=== PATIENT | male | born 1990 | race Caucasian/White ===

== ENCOUNTER 2024-08-09 23:14 | Emergency (ER) | payer OTHER, SELFPAY ==
[2024-08-09 23:27] VITALS: BP 114/65; BP 117/65; PULSE 85; RESP 16; TEMP 36.7; O2SAT 96; BMI 23.3
[2024-08-09 23:29] VITALS: BP 117/65; PULSE 84; RESP 16; TEMP 36.7; O2SAT 97
--- NOTE | 2024-08-09 23:42 | ED_ITS ---
HPI - General Adult General Chief complaint: General Medical Stated complaint: med eval - detoxing from heroin and crack Time Seen by Provider: 08/09/24 23:39 Source: patient and old records reviewed Mode of arrival: ambulatory Limitations: no limitations History of Present Illness ED Provider: MARKUS ESPINOSA narrative: 33 yo male with substance abuse, adhd here with c/o of not being able to get his medications since getting to [facility] 08/07 due to lack of meds at [place] [facility]. He states he is otherwise fine. They did not send it to 24 hours pharmacy. He is asking for medications MD complaint: needs his night meds Onset (ago): day(s) (2) Radiation: non-radiation Severity: moderate Relieving factors: none Exacerbating factors: none Associated symptoms: denies other symptoms Treatments prior to arrival: none Related Data Previous Rx's ?Medication ?Instructions ?Recorded gabapentin 300 mg capsule 300 mg PO TID #9 caps 08/09/24 haloperidol 5 mg tablet 5 mg PO BEDTIME #3 tabs 08/09/24 sertraline 100 mg tablet 100 mg PO DAILY #3 tabs 08/09/24 trazodone 50 mg tablet 50 mg PO BEDTIME #3 tabs 08/09/24 buprenorphine 8 mg-naloxone 2 mg 1 film buccal BID #6 ea 08/10/24 sublingual film (Suboxone) dextroamphetamine-amphetamine ER 15 mg PO DAILY #3 caps 08/10/24 15 mg 24hr capsule,extend release (Adderall XR) Allergies Allergy/AdvReac Type Severity Reaction Status Date / Time No Known Allergies Allergy Verified 08/09/24 23:29 Review of Systems Review of Systems: Constitutional : No Fever, No Chills, No Fatigue ENT/Mouth : No sore throat, No Rhinorrhea Eyes: No Eye Pain, No Swelling, No Redness Cardiovascular : No Chest Pain, No SOB, No Dyspnea on Exertion Respiratory : No Cough, No Sputum Gastrointestinal : No Nausea, No Vomiting, No Diarrhea, No abdominal Pain Genitourinary : No Dysuria, No Urinary Frequency, No Hematuria, Musculoskeletal : No joint pain, No Myalgias, No Joint Swelling Skin : No Skin Lesions, No rash Neuro : No Weakness, No Numbness, No Dizziness, no Headache All other systems reviewed and are negative PMFSH Past Medical History Attestation statement: The following information was validated with the patient. Source: old records reviewed Medical History (Updated 08/10/24 @ 00:01 by Tanvir Coyle) Mood disorder ADHD Opiate use Social History Social History (Updated 08/09/24 @ 23:43 by Lisa Massey DO) Patient Tobacco Use Status: Tobacco use Unknown Advance Directives: No Advance Directives Information Provided: Yes Physical Exam ED Vital Signs: Vital Signs - 24 hr 08/09/24 23:27 08/09/24 23:29 Temperature 98.1 F 98.1 F Pulse Rate 84 Respiratory Rate 16 16 Blood Pressure 117/65 117/65 Pulse Oximetry 97 Oxygen Delivery Method Room Air BMI result Body Mass Index 23.3 Appearance: Alert. Oriented X3. No acute distress. Eyes: Pupils equal, round and reactive to light. ENT: Pharynx normal. Neck: Normal inspection. Neck supple. CVS: Normal heart rate and rhythm. Pulses normal. Respiratory: No respiratory distress. Breath sounds normal. Abdomen: Soft and nontender. Skin: Skin warm and dry. Normal skin color. Normal skin turgor. Extremities: No lower extremity edema. No calf ttp Neuro: Oriented X 3. No motor deficit. No sensory deficit. 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 Suboxone Quetiapine - taking both and PRN hydroxyzine - taking Gabapentin - Adderall XR Sertraline Trazodone quetiapine haldol toro does not dose Rx until Monday will write 24 hours [facility] [address] for him through Monday Medications Administered Discontinued Medications Generic Name Dose Route Start Last Admin Trade Name Dai PRN Reason Stop Dose Admin Buprenorphine/Naloxone 1 film 08/09/24 23:45 08/09/24 23:55 Buprenorphine/Naloxone 8/2 Mg Film SUBLINGUAL 08/09/24 23:46 1 film ONCE ONE Administration Gabapentin 300 mg 08/09/24 23:45 08/09/24 23:52 Gabapentin 300 Mg Capsule PO 08/09/24 23:46 300 mg ONCE ONE Administration Haloperidol 5 mg 08/09/24 23:45 08/09/24 23:54 Haloperidol 5 Mg Tablet PO 08/09/24 23:46 5 mg ONCE ONE Administration Quetiapine Fumarate 50 mg 08/09/24 23:45 08/09/24 23:52 Quetiapine Fumarate 50 Mg Tablet PO 08/09/24 23:46 50 mg ONCE ONE Administration Trazodone HCl 50 mg 08/09/24 23:45 08/09/24 23:52 Trazodone Hcl 50 Mg Tablet PO 08/09/24 23:46 50 mg ONCE ONE Administration Medical Decision Making Medical Decision Making [facility] Narrative: 33 yo male with substance abuse, adhd here with c/o asking for his night medications I did confirm what he doesn't have with house staff and they confirm no meds will be given until Monday if they get them filled - we agreed a 3 day coverage to be done over the weekend at 24 hour [facility] in [place]. Patient is agreeable. Differential Diagnosis Differential Diagnoses: The differential diagnosis associated with the presentation includes med refill, poor outside resources Admission/Observation Consideration of admission/observation: Escalation of care including admission/observation considered no medical complaints has safe ride home Rx medications done Independent Historian Clinical information obtained from an independent historian. History obtained from or confirmed by: Other (caregiver) External Record Review External record reviewed: Outpatient record Prescription Management I considered prescription management with: Pain Medication and Other Discharge Plan Discharge Clinical Impression: Encounter for medication refill Patient Disposition: Home, Self-Care Instructions: Medicine Refill (ED) Additional Instructions: return for any worsening symptoms or concerns take medications as prescribed short bridge this weekend until pharmacy ready Prescriptions: New gabapentin 300 mg capsule 300 mg PO TID Qty: 9 0RF sertraline 100 mg tablet 100 mg PO DAILY Qty: 3 0RF trazodone 50 mg tablet 50 mg PO BEDTIME Qty: 3 0RF haloperidol 5 mg tablet 5 mg PO BEDTIME Qty: 3 0RF dextroamphetamine-amphetamine [Adderall XR] 15 mg capsule,extended release 24hr 15 mg PO DAILY Qty: 3 0RF Rx Instructions: Partial Fill upon patient request. buprenorphine-naloxone [Suboxone] 8-2 mg film 1 film buccal BID Qty: 6 0RF Print Language: Haitian
[2024-08-09] MEDS: Gabapentin 300 MG CAPSULE PO (23:52)
[2024-08-09] MEDS: traZODone HCL 50 MG TABLET PO (23:52)
[2024-08-09] MEDS: QUEtiapine Fumarate 50 MG TABLET PO (23:52)
[2024-08-09] MEDS: HaloperidoL 5 MG TABLET PO (23:54)
[2024-08-09] MEDS: Buprenorphine/Naloxone 8/2 mg FILM 1 FILM SUBLINGUAL (23:55)
== END 2024-08-10 00:23 | disposition home or self-care (01) ==
PROVIDERS: Emergency Provider Emergency Medicine
DX: F19.10 Other psychoactive substance abuse, uncomplicated (principal); F90.9 Attention-deficit hyperactivity disorder, unspecified type; F39 Unspecified mood [affective] disorder; F11.20 Opioid dependence, uncomplicated; Z76.0 Encounter for issue of repeat prescription
CPT/HCPCS: 99283

== ENCOUNTER 2024-08-10 09:55 | Emergency (ER) | payer OTHER, SELFPAY ==
[2024-08-10 10:09] VITALS: BP 117/59; PULSE 83; RESP 16; TEMP 36.6; O2SAT 96; BMI 23.4
--- NOTE | 2024-08-10 10:23 | ED.GENADULT ---
HPI - General Adult General Chief complaint: General Medical Stated complaint: needs med dose Time Seen by Provider: 08/10/24 10:22 Source: patient and other ([facility] staff) Mode of arrival: ambulatory Limitations: no limitations History of Present Illness ED Provider: LETI CH PA-C HPI narrative: This is a 33 year old male with past medical history significant for opioid use disorder and ADHD who presents with a staff member from [facility] ([facility] [place]) requesting medication dosing. Patient was currently sent to the [facility] (recovery home) after being discharged from [facility]. On discharge, he was not provided any prescription for his home medications. Patient reports he was seen here yesterday and was provided a dose and 3 cristin refill of his medications. However, when a his staff member went to the pharmacy to picker feeder these medications this morning, the pharmacy was unable to fill them because a prior authorization was required. He presents to the ED this morning requesting to be dosed with his medications (haldol, trazodone, seroquel, suboxone, gabapentin). He denies any complaints/ concerns at present. Related Data Previous Rx's ?Medication ?Instructions ?Recorded gabapentin 300 mg capsule 300 mg PO TID #9 caps 08/09/24 haloperidol 5 mg tablet 5 mg PO BEDTIME #3 tabs 08/09/24 sertraline 100 mg tablet 100 mg PO DAILY #3 tabs 08/09/24 trazodone 50 mg tablet 50 mg PO BEDTIME #3 tabs 08/09/24 buprenorphine 8 mg-naloxone 2 mg 1 film buccal BID #6 ea 08/10/24 sublingual film (Suboxone) dextroamphetamine-amphetamine ER 15 mg PO DAILY #3 caps 08/10/24 15 mg 24hr capsule,extend release (Adderall XR) Allergies Allergy/AdvReac Type Severity Reaction Status Date / Time No Known Allergies Allergy Verified 08/10/24 18:05 Review of Systems Review of Systems: Constitutional: No fever, chills, fatigue, night sweats, weight changes ENT/Mouth: No ear pain, hearing loss, nasal congestion, sinus pain, rhinorrhea, sore throat Eyes: No eye pain, swelling, redness, vision changes, discharge Cardio: No chest pain, palpitations, TEJADA, orthopnea, peripheral edema Pulm: No SOB, cough, sputum, wheezing, dyspnea, hemoptysis GI: No nausea, vomiting, hematemesis, abdominal pain, diarrhea, constipation, hematochezia, melena : No irregular bleeding, dysuria, frequency, urgency, hesitancy, hematuria, flank pain, urinary flow changes, urinary incontinence or retention MSK: No back pain, neck pain, joint pain, myalgias Skin: No lesions, rashes Neuro: No weakness, numbness, paresthesias, LOC, dizziness, headache Psych: No anxiety/panic, depression, SI/HI, AH/VH All other systems reviewed and are negative. Yes all other systems are reviewed and are negative [facility] Past Medical History Attestation statement: The following information was validated with the patient. Source: old records reviewed and nursing notes reviewed Medical History Mood disorder ADHD Opiate use Social History Social History Patient Tobacco Use Status: Tobacco use Unknown Advance Directives: No Advance Directives Information Provided: No Physical Exam ED Vital Signs: Vital Signs - 24 hr 08/10/24 10:09 08/10/24 11:18 Temperature 97.9 F 97.9 F Pulse Rate 83 83 Respiratory Rate 16 16 Blood Pressure 117/59 L 117/59 L Pulse Oximetry 96 96 Oxygen Delivery Method Room Air Room Air BMI result Body Mass Index 23.4 vital signs stable General: Well appearing, in no acute distress. Skin: Warm, dry, intact. No rashes or lesions. Head: Normocephalic, atraumatic. EENT: Hearing is intact b/l. Conjunctiva clear. PERRLA. EOM intact. Moist mucous membranes.? Cardiac: Chest wall symmetric. RRR Lungs: Normal respiratory effort without accessory muscle use. CTA bilaterally Ext: Upper and lower extremities atraumatic, without tenderness, deformity, swelling or erythema Neuro: AOx3. Normal speech. CN 2-12 grossly intact. Ambulating with steady gait. Psych: Appropriate mood and affect. Responds appropriately to questions. Course Course Course Narrative: I called and spoke with pharmacist at [facility]. He confirmed that patient did not picker feeder any of the medications that were sent in yesterday (suboxone, adderall, gabapentin, haloperidol, sertraline, trazodone). He states that many of these medications are flagging as too soon for refill as they were recently filled at [facility]. others need prior authorization. He states that none of these medications can be filled today. Discussed with patient and [facility] staff member. Will dose patient again in ED today. It is likely that he will have to return here for further dosing if the pharmacy is unable to fill these scripts this weekend. Reevaluation(s) Reevaluation #1: Patient provided dose of suboxone, seroquel, trazodone, haldol, and gabapentin. Patient has remained stable throughout ED visit today. Patient is agreeable with disposition and stable for discharge. Medications Administered Discontinued Medications Generic Name Dose Route Start Last Admin Trade Name Freq PRN Reason Stop Dose Admin Buprenorphine/Naloxone 1 film 08/10/24 10:48 08/10/24 11:16 Buprenorphine/Naloxone 8/2 Mg Film SUBLINGUAL 08/10/24 10:49 1 film ONCE ONE Administration Gabapentin 300 mg 08/10/24 10:48 08/10/24 11:16 Gabapentin 300 Mg Capsule PO 08/10/24 10:49 300 mg ONCE ONE Administration Haloperidol 5 mg 08/10/24 10:48 08/10/24 11:16 Haloperidol 5 Mg Tablet PO 08/10/24 10:49 5 mg ONCE ONE Administration Quetiapine Fumarate 50 mg 08/10/24 10:48 08/10/24 11:16 Quetiapine Fumarate 50 Mg Tablet PO 08/10/24 10:49 50 mg ONCE ONE Administration Trazodone HCl 50 mg 08/10/24 10:48 08/10/24 11:16 Trazodone Hcl 50 Mg Tablet PO 08/10/24 10:49 50 mg ONCE ONE Administration Medical Decision Making Differential Diagnosis Differential Diagnoses: The differential diagnosis associated with the presentation includes as above. Admission/Observation not indicated. Independent Historian Clinical information obtained from an independent historian. History obtained from or confirmed by: Other ([facility] staff) External Record Review External record reviewed: Inpatient record Social Determinants Patient?s care significantly limited by Social Determinants of Health including: Other Social Determinant of Health Critical Care Time Critical Care Time Critical Care Time: No Discharge Plan Discharge Clinical Impression: Encounter for medication refill Patient Disposition: Home, Self-Care Instructions: Medicine Refill (ED) Additional Instructions: Return with any new or worsening symptoms. In the case of an emergency call 911. [facility] [address] in [place] [facility] your medications. Prescriptions: No Action gabapentin 300 mg capsule 300 mg PO TID Qty: 9 0RF sertraline 100 mg tablet 100 mg PO DAILY Qty: 3 0RF trazodone 50 mg tablet 50 mg PO BEDTIME Qty: 3 0RF haloperidol 5 mg tablet 5 mg PO BEDTIME Qty: 3 0RF dextroamphetamine-amphetamine [Adderall XR] 15 mg capsule,extended release 24hr 15 mg PO DAILY Qty: 3 0RF Rx Instructions: Partial Fill upon patient request. buprenorphine-naloxone [Suboxone] 8-2 mg film 1 film buccal BID Qty: 6 0RF Referrals: [facility] [Provider Group] Interventions: ED Discharge Assessment Last Done: 08/10/24 11:18 Discharge Date/Time: 08/10/24 11:19 Print Language: Persian
--- NOTE | 2024-08-10 10:24 | PC.NURSE ---
Pt from triage to [address]. A/O x 3 no apparent s/s of distress. Pt presents to ER for suboxone dosing. Denies SI/HI and pain. Resting comfortably on stretcher.
[2024-08-10] MEDS: HaloperidoL 5 MG TABLET PO (11:16)
[2024-08-10] MEDS: QUEtiapine Fumarate 50 MG TABLET PO (11:16)
[2024-08-10] MEDS: traZODone HCL 50 MG TABLET PO (11:16)
[2024-08-10] MEDS: Gabapentin 300 MG CAPSULE PO (11:16)
[2024-08-10] MEDS: Buprenorphine/Naloxone 8/2 mg FILM 1 FILM SUBLINGUAL (11:16)
[2024-08-10 11:18] VITALS: BP 117/59; PULSE 83; RESP 16; TEMP 36.6; O2SAT 96
== END 2024-08-10 11:19 | disposition home or self-care (01) ==
PROVIDERS: Emergency Provider Emergency Medicine
DX: Z76.0 Encounter for issue of repeat prescription (principal); F19.10 Other psychoactive substance abuse, uncomplicated; F90.9 Attention-deficit hyperactivity disorder, unspecified type; F39 Unspecified mood [affective] disorder; F11.20 Opioid dependence, uncomplicated
CPT/HCPCS: 99284

== ENCOUNTER 2024-08-10 17:14 | Emergency (ER) | payer OTHER, SELFPAY ==
[2024-08-10 18:02] VITALS: BP 111/64; PULSE 89; RESP 14; TEMP 36.8; O2SAT 98; BMI 23.6
--- NOTE | 2024-08-10 18:02 | ED_ITS ---
HPI - General Adult General Chief complaint: General Medical Stated complaint: needs medicine/pre auth needed for prescriptions Time Seen by Provider: 08/10/24 18:51 Source: patient and other ([facility] staff) Mode of arrival: ambulatory Limitations: no limitations History of Present Illness ED Provider: Adriana Roberts PA-C HPI narrative: Patient is a 33 year old assigned male at with a history of substance use presenting to the emergency department today for medication dosing. Patient states that he was sent to the [facility] after being in [facility] and unfortunately was not sent with any of this medications. Patient states that he was seen here, given a dose, and a script for 3 days was sent in. However, the pharmacy will not fill the prescription for 3 days worth of his medicines because it is flagging it as being too soon to refill given his recent prescription filled for his stay at [facility]. [facility] states that they will be able to work out his prescriptions with [facility] on 08/12/2024 but they have no way of medicating him in the mean time. Patient denies any complaints at this time. Related Data Previous Rx's ?Medication ?Instructions ?Recorded gabapentin 300 mg capsule 300 mg PO TID #9 caps 08/09/24 haloperidol 5 mg tablet 5 mg PO BEDTIME #3 tabs 08/09/24 sertraline 100 mg tablet 100 mg PO DAILY #3 tabs 08/09/24 trazodone 50 mg tablet 50 mg PO BEDTIME #3 tabs 08/09/24 buprenorphine 8 mg-naloxone 2 mg 1 film buccal BID #6 ea 08/10/24 sublingual film (Suboxone) dextroamphetamine-amphetamine ER 15 mg PO DAILY #3 caps 08/10/24 15 mg 24hr capsule,extend release (Adderall XR) Allergies Allergy/AdvReac Type Severity Reaction Status Date / Time No Known Allergies Allergy Verified 08/10/24 18:05 Review of Systems Constitutional: Constitutional: Reports no additional constitutional complaints, Denies chills, Denies fever(s) and Denies night sweats Eyes: Eyes: Reports no additional eye complaints, Denies blurry vision, Denies change in vision, Denies diplopia, Denies eye discharge, Denies loss of vision and Denies eye pain ENT: Denies dizziness Cardiovascular: Cardiovascular: Reports no additional cardiovascular complaints, Denies chest pain, Denies lightheadedness, Denies Loss of C onsciousness and Denies dyspnea Respiratory: Respiratory: Reports no additional respiratory complaints and Denies dyspnea Gastrointestinal: Gastrointestinal: Reports no additional gastrointestinal complaints, Denies abdominal pain, Denies melena, Denies hematochezia, Denies change in bowel habits and Denies change in stool character Genitourinary: Genitourinary: Reports no additional male genitourinary complaints, Denies hematuria, Denies oliguria, Denies difficulty urinating, Denies dysuria, Denies urinary frequency, Denies urinary hesitancy, Denies urinary incontinence and Denies urinary urgency Musculoskeletal: Musculoskeletal: Reports no additional musculoskeletal complaints, Denies numbness and Denies tingling Neurologic: Denies dizziness, Denies loss of vision, Denies numbness and Denies tingling Psychiatric: Psychiatric: Reports no additional psychiatric complaints Endocrine: Endocrine: Reports no additional endocrine complaints Hematologic/Lymphatic: Hematologic/Lymphatic: Reports no additional hematologic/lymphatic complaints Allergic/Immunologic: Allergic/Immunologic: Reports no additional allergic/immunologic complaints PMFSH Past Medical History Attestation statement: The following information was validated with the patient. (all information validated with the [facility] staff) Source: old records reviewed, nursing notes reviewed and other ([facility] staff provided additional history and confirmed the history provided by the patient.) Medical History Mood disorder ADHD Opiate use Social History Social History Patient Tobacco Use Status: Tobacco use Unknown Advance Directives: No Advance Directives Information Provided: No Physical Exam ED Vital Signs: Vital Signs - 24 hr 08/10/24 18:02 Temperature 98.2 F Pulse Rate 89 Respiratory Rate 14 Blood Pressure 111/64 Pulse Oximetry 98 BMI result Body Mass Index 23.6 Const General: cooperative, no acute distress, alert and awake Nutritional Appearance: well nourished Orientation/consciousness: patient oriented x3 HENMT Head: Yes normal to inspection and Yes atraumatic Ears: hearing grossly normal bilaterally and external ears normal General nose exam: Normal external nose present, no nasal discharge noted and no epistaxis Face and sinus: Yes normal facial exam, No abrasion and No laceration Mouth: Normal oral and palatal mucosa present, no drooling and no muffled voice Eyes General: appearance normal, both eyes and all related structures Periorbital: periorbital findings normal Eyelids: Yes eyelids normal Conjunctivae: conjunctivae normal Pupils: Equal, round and reactive pupils present EOM: EOMs intact bilaterally Neck Neck: Yes normal visual inspection, Yes full ROM and Yes no lymphadenopathy Resp Effort & Inspection: normal respiratory effort and able to speak in complete sentences Neuro General: patient oriented x3, moves all extremities and CN's II-XI intact bilaterally Cranial nerves: Yes Equal, round and reactive pupils present Cognition (Neuro): normal cognition Extrem General: Yes normal to inspection, Yes full ROM and Yes capillary refill normal Psych Appearance: grossly normal Mental Status: mental status grossly normal Affect: normal affect Attitude: cooperative Thought process: Normal thought process present Thought content: Normal thought content present Insight: Good insight present (Psych) Course Course Course Narrative: RME performed by Adriana Roberts PA-C. Patient is a 33 year old assigned male at presenting to the emergency department to be medicated. Patient states he is missing his medication and the pharmacy won't fill them because it is too soon to be filled and another medication requires a prior authorization. Detailed physical exam and review of systems are deferred to the primary operator. Patient placed back in the waiting room pending room availability. Medical Decision Making Medical Decision Making MDM Narrative: Patient is a 33 year old assigned male at with a history of substance use presenting to the emergency department today for medication dosing. Patient's physical exam was unremarkable. I explained my physical exam findings to the patient and the [facility] staff at the bedside. I answered all questions asked by the patient and the [facility] staff at the bedside. I had a conversation with the ED leadership team and together we determined that giving the patient his evening dose of medications tonight and having him return for his morning and evening doses on 08/11/2024 was the best course of action to ensure the patient was medication compliant given there is no other way to get him the appropriate medicine before [facility] opens on 08/12/2024. Patient received his dose of evening meds without incident. I stressed the importance of the patient taking his medication as directed (either prescribed or as the over the counter packaging recommends). I stressed the importance of the patient following up with his primary care and psychiatric providers. I stressed the importance of the patient returning to the emergency department for his next morning and evening medication doses or immediately if he were to develop any dizziness, shortness of breath, difficulty breathing, chest pain, blurry vision, loss of vision, nausea, vomiting, abdominal pain, fever, chills, back pain, or any other complaints. Patient and the [facility] staff at the bedside verbalized agreement and understanding with this treatment plan and discharge. Differential Diagnosis Differential Diagnoses: The differential diagnosis associated with the presentation includes Encounter for medication dosing / refill Independent Historian Clinical information obtained from an independent historian. History obtained from or confirmed by: Other ([facility] staff provided additional history and confirmed the history provided by the patient.) Discharge Plan Discharge Clinical Impression: Encounter for medication refill Patient Disposition: Home, Self-Care Additional Instructions: Unfortunately, the [facility] pharmacy will not refill your prescriptions at this time because it is too early - however, [facility] will be able to work with your house staff on Monday (08/12/2024) and get your prescriptions to you. Until then, you'll have to return to the emergency department for your medication doses (morning of 08/11/2024 and evening of 08/11/2024) given there is no other way for you to receive your medication at this time. Prescriptions: No Action gabapentin 300 mg capsule 300 mg PO TID Qty: 9 0RF sertraline 100 mg tablet 100 mg PO DAILY Qty: 3 0RF trazodone 50 mg tablet 50 mg PO BEDTIME Qty: 3 0RF haloperidol 5 mg tablet 5 mg PO BEDTIME Qty: 3 0RF dextroamphetamine-amphetamine [Adderall XR] 15 mg capsule,extended release 24hr 15 mg PO DAILY Qty: 3 0RF Rx Instructions: Partial Fill upon patient request. buprenorphine-naloxone [Suboxone] 8-2 mg film 1 film buccal BID Qty: 6 0RF Print Language: Thai
[2024-08-10] MEDS: HaloperidoL 5 MG TABLET PO (19:32)
[2024-08-10] MEDS: Gabapentin 300 MG CAPSULE PO (19:32)
[2024-08-10] MEDS: Buprenorphine/Naloxone 8/2 mg FILM 1 FILM SUBLINGUAL (19:32)
[2024-08-10] MEDS: traZODone HCL 50 MG TABLET PO (19:32)
[2024-08-10 19:37] VITALS: BP 111/64; PULSE 89; RESP 14; TEMP 36.8; O2SAT 98
== END 2024-08-10 19:37 | disposition home or self-care (01) ==
PROVIDERS: Emergency Provider Internal Medicine; PCP Student in an Organized Health Care Education/Training Program
DX: Z76.0 Encounter for issue of repeat prescription (principal); F90.9 Attention-deficit hyperactivity disorder, unspecified type; F39 Unspecified mood [affective] disorder; F11.20 Opioid dependence, uncomplicated
CPT/HCPCS: 99282; 99283

== ENCOUNTER 2024-08-11 17:40 | Emergency (ER) | payer OTHER, SELFPAY ==
[2024-08-11 17:41] VITALS: BP 140/79; PULSE 83; RESP 16; TEMP 36.3; O2SAT 98; BMI 23.6
--- NOTE | 2024-08-11 17:41 | ED_ITS ---
HPI - General Adult General Chief complaint: General Medical Stated complaint: Needs meds refill Time Seen by Provider: 08/11/24 17:44 Source: patient Mode of arrival: ambulatory Limitations: no limitations History of Present Illness ED Provider: Adriana Roberts PA-C HPI narrative: Patient is a 33 year old assigned male at with a history of substance use presenting to the emergency department today for medication dosing. Patient states that he was sent to the [facility] after being in [facility] and unfortunately was not sent with any of this medications. Patient states that he was seen here on 08/09/2024 and twice on 08/10/2024 and given a single dose of his medications. He states that he was originally sent a script for 3 days worth of his medicine after he was originally seen here on 08/09/2024 however, the pharmacy will not fill the prescription because it is flagging it as being too soon to refill given his recent prescription filled for his stay at [facility] and his prescription awaiting him at [place]. [facility] states that they will be able to work out his prescriptions with [place] on 08/12/2024 but they have no way of medicating him in the mean time. Patient denies any complaints at this time. Related Data Previous Rx's ?Medication ?Instructions ?Recorded gabapentin 300 mg capsule 300 mg PO TID #9 caps 08/09/24 haloperidol 5 mg tablet 5 mg PO BEDTIME #3 tabs 08/09/24 sertraline 100 mg tablet 100 mg PO DAILY #3 tabs 08/09/24 trazodone 50 mg tablet 50 mg PO BEDTIME #3 tabs 08/09/24 buprenorphine 8 mg-naloxone 2 mg 1 film buccal BID #6 ea 08/10/24 sublingual film (Suboxone) dextroamphetamine-amphetamine ER 15 mg PO DAILY #3 caps 08/10/24 15 mg 24hr capsule,extend release (Adderall XR) Allergies Allergy/AdvReac Type Severity Reaction Status Date / Time No Known Allergies Allergy Verified 08/12/24 11:15 Review of Systems Constitutional: Constitutional: Reports no additional constitutional complaints, Denies chills, Denies fever(s) and Denies night sweats Eyes: Eyes: Reports no additional eye complaints, Denies blurry vision, Denies change in vision, Denies diplopia, Denies eye discharge, Denies loss of vision and Denies eye pain ENT: Denies dizziness Cardiovascular: Cardiovascular: Reports no additional cardiovascular complaints, Denies chest pain, Denies lightheadedness, Denies Loss of Consciousness and Denies dyspnea Respiratory: Respiratory: Reports no additional respiratory complaints and Denies dyspnea Gastrointestinal: Gastrointestinal: Reports no additional gastrointestinal complaints, Denies abdominal pain, Denies melena, Denies hematochezia, Denies change in bowel habits and Denies change in stool character Genitourinary: Genitourinary: Reports no additional male genitourinary complaints, Denies hematuria, Denies oliguria, Denies difficulty urinating, Denies dysuria, Denies urinary frequency, Denies urinary hesitancy, Denies urinary incontinence and Denies urinary urgency Musculoskeletal: Musculoskeletal: Reports no additional musculoskeletal c omplaints, Denies numbness and Denies tingling Neurologic: Denies dizziness, Denies loss of vision, Denies numbness and Denies tingling Psychiatric: Psychiatric: Reports no additional psychiatric complaints Endocrine: Endocrine: Reports no additional endocrine complaints Hematologic/Lymphatic: Hematologic/Lymphatic: Reports no additional hematologic/lymphatic complaints Allergic/Immunologic: Allergic/Immunologic: Reports no additional allergic/immunologic complaints PMFSH Past Medical History Attestation statement: The following information was validated with the patient. Source: old records reviewed and nursing notes reviewed Medical History Mood disorder ADHD Opiate use Social History Social History Patient Tobacco Use Status: Tobacco use Unknown Advance Directives: No Advance Directives Information Provided: Yes Do you have a plan to hurt others: No Plan Physical Exam ED Vital Signs: Vital Signs - 24 hr 08/11/24 17:41 Temperature 97.4 F Pulse Rate 83 Respiratory Rate 16 Blood Pressure 140/79 H Pulse Oximetry 98 Oxygen Delivery Method Room Air BMI result Body Mass Index 23.6 Const General: cooperative, no acute distress, alert and awake Nutritional Appearance: well nourished Orientation/consciousness: patient oriented x3 HENMT Head: Yes normal to inspection and Yes atraumatic Ears: hearing grossly normal bilaterally and external ears normal General nose exam: Normal external nose present, no nasal discharge noted and no epistaxis Face and sinus: Yes normal facial exam, No abrasion and No laceration Mouth: Normal oral and palatal mucosa present, no drooling and no muffled voice Eyes General: appearance normal, both eyes and all related structures Periorbital: periorbital findings normal Eyelids: Yes eyelids normal Conjunctivae: conjunctivae normal Pupils: Equal, round and reactive pupils present EOM: EOMs intact bilaterally Neck Neck: Yes normal visual inspection, Yes full ROM and Yes no lymphadenopathy Resp Effort & Inspection: normal respiratory effort and able to speak in complete sentences Neuro General: patient oriented x3, moves all extremities and CN's II-XI intact bilaterally Cranial nerves: Yes Equal, round and reactive pupils present Cognition (Neuro): normal cognition Extrem General: Yes normal to inspection, Yes full ROM and Yes capillary refill normal Psych Appearance: grossly normal Mental Status: mental status grossly normal Affect: normal affect Attitude: cooperative Thought process: Normal thought process present Thought content: Normal thought content present Insight: Good insight present (Psych) Medications Administered Discontinued Medications Generic Name Dose Route Start Last Admin Trade Name Freq PRN Reason Stop Dose Admin Buprenorphine/Naloxone 1 film 08/11/24 17:44 08/11/24 17:53 Buprenorphine/Naloxone 8/2 Mg Film SUBLINGUAL 08/11/24 17:45 1 film ONCE ONE Administration Gabapentin 300 mg 08/11/24 17:44 08/11/24 17:53 Gabapentin 300 Mg Capsule PO 08/11/24 17:45 300 mg ONCE ONE Administration Haloperidol 5 mg 08/11/24 17:44 08/11/24 17:53 Haloperidol 5 Mg Tablet PO 08/11/24 17:45 5 mg ONCE ONE Administration Quetiapine Fumarate 50 mg 08/11/24 17:45 08/11/24 17:53 Quetiapine Fumarate 50 Mg Tablet PO 08/11/24 17:46 50 mg ONCE ONE Administration Trazodone HCl 50 mg 08/11/24 17:44 08/11/24 17:53 Trazodone Hcl 50 Mg Tablet PO 08/11/24 17:45 50 mg ONCE ONE Administration Medical Decision Making Medical Decision Making MDM Narrative: Patient is a 33 year old assigned male at with a history of substance use presenting to the emergency department today for medication dosing. Patient's physical exam was unremarkable. I explained my physical exam findings to the patient. I answered all questions asked by the patient. Per the conversation I had with ED leadership on 08/10/2024 - patient was given another 1 time dose of his medications and instructed to follow up with [place] pharmacy on 08/12/2024. Patient received his dose of evening meds without incident. I stressed the importance of the patient taking his medication as directed (either prescribed or as the over the counter packaging recommends). I stressed the importance of the patient following up with his primary care and psychiatric providers. I stressed the importance of the patient returning to the emergency department immediately if he were to develop any dizziness, shortness of breath, difficulty breathing, chest pain, blurry vision, loss of vision, nausea, vomiting, abdominal pain, fever, chills, back pain, or any other complaints. Patient verbalized agreement and understanding with this treatment plan and discharge. Differential Diagnosis Differential Diagnoses: The differential diagnosis associated with the presentation includes Medication administration Discharge Plan Discharge Clinical Impression: Medication administered Patient Disposition: Home, Self-Care Additional Instructions: This evening was your last time receiving your dose of home medications at the emergency department. [facility] staff will be in touch with [place] on 08/12/2024 to get your home medications for you. Follow up with your primary care provider. Return to the emergency department immediately if you develop any numbness, tingling, dizziness, shortness of breath, difficulty breathing, chest pain, blurry vision, loss of vision, nausea, vomiting, abdominal pain, fever, chills, back pain, or any other complaints. Prescriptions: No Action gabapentin 300 mg capsule 300 mg PO TID Qty: 9 0RF sertraline 100 mg tablet 100 mg PO DAILY Qty: 3 0RF trazodone 50 mg tablet 50 mg PO BEDTIME Qty: 3 0RF haloperidol 5 mg tablet 5 mg PO BEDTIME Qty: 3 0RF dextroamphetamine-amphetamine [Adderall XR] 15 mg capsule,extended release 24hr 15 mg PO DAILY Qty: 3 0RF Rx Instructions: Partial Fill upon patient request. buprenorphine-naloxone [Suboxone] 8-2 mg film 1 film buccal BID Qty: 6 0RF Interventions: ED Discharge Assessment Last Done: 08/11/24 17:56 Discharge Date/Time: 08/11/24 17:57 Print Language: Danish
[2024-08-11] MEDS: HaloperidoL 5 MG TABLET PO (17:53)
[2024-08-11] MEDS: Gabapentin 300 MG CAPSULE PO (17:53)
[2024-08-11] MEDS: QUEtiapine Fumarate 50 MG TABLET PO (17:53)
[2024-08-11] MEDS: traZODone HCL 50 MG TABLET PO (17:53)
[2024-08-11] MEDS: Buprenorphine/Naloxone 8/2 mg FILM 1 FILM SUBLINGUAL (17:53)
[2024-08-11 17:56] VITALS: BP 140/79; PULSE 83; RESP 16; TEMP 36.3; O2SAT 98
--- NOTE | 2024-08-11 17:56 | PC.NURSE ---
pt medicated per order, discharged with staff [facility]
== END 2024-08-11 17:57 | disposition home or self-care (01) ==
PROVIDERS: Emergency Provider Emergency Medicine; PCP Student in an Organized Health Care Education/Training Program
DX: F39 Unspecified mood [affective] disorder (principal); F90.9 Attention-deficit hyperactivity disorder, unspecified type; F11.90 Opioid use, unspecified, uncomplicated
CPT/HCPCS: 99282; 99283

== ENCOUNTER 2024-08-12 10:58 | Emergency (ER) | payer OTHER, SELFPAY ==
[2024-08-12 11:13] VITALS: BP 134/67; PULSE 91; RESP 18; TEMP 36.6; O2SAT 96; BMI 23.4
--- NOTE | 2024-08-12 11:18 | ED_ITS ---
HPI - General Adult General Chief complaint: General Medical Stated complaint: medication Time Seen by Provider: 08/12/24 13:56 Source: patient and RN notes reviewed Mode of arrival: ambulatory Limitations: no limitations History of Present Illness ED Provider: Andria Campo PA-C [facility] narrative: This is a 33-year-old male, with a past medical history of substance abuse, and ADHD, who presents emergency department from [facility] for medication. Patient states that he has not been receiving his medications and has been returning back to [facility] for dosing. He was seen on August 09, 2029 1st, and August 11 for dosing of medications. He states that he is unsure why he is not getting his medications at the facility, and was told to report here to get his medications. MD complaint: Medication dosing Related Data Previous Rx's ?Medication ?Instructions ?Recorded gabapentin 300 mg capsule 300 mg PO TID #9 caps 08/09/24 haloperidol 5 mg tablet 5 mg PO BEDTIME #3 tabs 08/09/24 sertraline 100 mg tablet 100 mg PO DAILY #3 tabs 08/09/24 trazodone 50 mg tablet 50 mg PO BEDTIME #3 tabs 08/09/24 buprenorphine 8 mg-naloxone 2 mg 1 film buccal BID #6 ea 08/10/24 sublingual film (Suboxone) dextroamphetamine-amphetamine ER 15 mg PO DAILY #3 caps 08/10/24 15 mg 24hr capsule,extend release (Adderall XR) Allergies Allergy/AdvReac Type Severity Reaction Status Date / Time No Known Allergies Allergy Verified 08/12/24 11:15 Review of Systems Review of Systems: Yes all other systems are reviewed and are negative Constitutional: Constitutional: Reports as per [facility] Past Medical History Medical History Mood disorder ADHD Opiate use Social History Social History Patient Tobacco Use Status: Tobacco use Unknown Advance Directives: No Advance Directives Information Provided: Yes Do you have a plan to hurt others: No Plan Physical Exam ED Vital Signs: Vital Signs - 24 hr 08/12/24 11:13 Temperature 97.8 F Pulse Rate 91 Respiratory Rate 18 Blood Pressure 134/67 Pulse Oximetry 96 Oxygen Delivery Method Room Air BMI result Body Mass Index 23.4 Const Other: General: Awake, alert, and oriented X3. No acute distress. HEENT: Normal inspection CVS: Normal heart rate and rhythm. Pulses normal. Respiratory: No respiratory distress Skin: Warm, dry, no rashes noted to exposed skin. Normal skin color. Normal skin turgor. Extremities: normal to inspection Neuro: Oriented X 3. No motor deficit. No sensory deficit. Course Course Course Narrative: This is an RME: Additional HPI, ROS, PE not included below will be deferred to primary provider. RME assessment and note performed by: Andria Campo PA-C This is a 33-year-old male who presents emergency department for medication refill. Patient has been seen on August 09, twice on August 10, and August 11 for the same complaint. Per the previous note, it seems that they will be able to work out his prescriptions with [facility] on August 12 but have no way of medicating him in the meantime. Patient has no current complaints. He is currently staying at the [facility]. Plan: further ER eval needed Medical Decision Making Medical Decision Making MDM Narrative: This is a 33-year-old male who presents emergency department from [facility] for medication dosing. Patient has been seen here August 09 of August 10 of August 11, as well as today for medication dosing. Per the other documentation, he was supposed to get situated on his medications by today however he states that he still is not getting his medications. Patient reports that he has not been given his medications at all today however my supervising physician, Dr. Massey called and spoke to Mari who stated that all he needs is Suboxone, and he does not need any of his other medications. It appears that every time he comes to the emergency room he has been dosing on his other medications therefore he has been given extra doses of Haldol, and Adderall, this message was relayed to the [facility]. Patient given 1 time dose of Suboxone, and patient discharged. Per the [facility] patient's medications should be situated by today. Differential Diagnosis Differential Diagnoses: The differential diagnosis associated with the presentation includes Opioid use disorder, opiate withdrawal, polysubstance abuse, medication refills Discharge Plan Discharge Clinical Impression: Opioid use disorder Patient Disposition: Home, Self-Care Instructions: Opioid Use Disorder (ED) Additional Instructions: You were seen today for a medication dosing. We spoke to the asked her house and you only need to be dosed on your Suboxone. You have received Suboxone 8/2mg today at 02:15PM. You need to follow-up with the [facility] as they will have your medications sorted out tomorrow (08/13). Return with any worsening symptoms or concerns. Prescriptions: No Action gabapentin 300 mg capsule 300 mg PO TID Qty: 9 0RF sertraline 100 mg tablet 100 mg PO DAILY Qty: 3 0RF trazodone 50 mg tablet 50 mg PO BEDTIME Qty: 3 0RF haloperidol 5 mg tablet 5 mg PO BEDTIME Qty: 3 0RF dextroamphetamine-amphetamine [Adderall XR] 15 mg capsule,extended release 24hr 15 mg PO DAILY Qty: 3 0RF Rx Instructions: Partial Fill upon patient request. buprenorphine-naloxone [Suboxone] 8-2 mg film 1 film buccal BID Qty: 6 0RF Print Language: Montserratian
[2024-08-12] MEDS: Buprenorphine/Naloxone 8/2 mg FILM 1 FILM SUBLINGUAL (14:11)
[2024-08-12 14:18] VITALS: BP 134/67; PULSE 91; RESP 18; TEMP 36.6; O2SAT 96
== END 2024-08-12 14:18 | disposition home or self-care (01) ==
PROVIDERS: Emergency Provider Emergency Medicine; PCP Student in an Organized Health Care Education/Training Program
DX: F11.10 Opioid abuse, uncomplicated (principal); Z79.899 Other long term (current) drug therapy
CPT/HCPCS: 99282; 99283

== ENCOUNTER 2025-01-24 12:04 | Emergency (ER) | payer OTHER, SELFPAY ==
--- NOTE | 2025-01-24 12:13 | ED.PSYCH ---
HPI - Psych General Chief Complaint: Psychiatric Symptoms Stated Complaint: SI Time Seen by Provider: 01/24/25 12:26 Source: patient Mode of arrival: ambulatory Limitations: no limitations History of Present Illness ED Provider: HPI Narrative: 34-year-old male with a history of polysubstance use disorder, experiencing homelessness, just got discharged from rehab today, states it was not a good idea and he wanted to use drugs again, he also states he would like to go to [facility] and when asked whether he is suicidal he stated I thought about overdosing, admits that [facility] without residents right now has a big factor I have him come into the ER Related Data Home Medications ?Medication ?Instructions ?Recorded ?Confirmed benztropine 0.5 mg tablet 0.5 mg PO DAILY 01/24/25 01/24/25 diphenhydramine HCl 25 mg capsule 25 mg PO BEDTIME PRN Insomnia 01/24/25 01/24/25 melatonin 3 mg tablet 9 mg PO BEDTIME 01/24/25 01/24/25 prazosin 1 mg capsule 1 mg PO BEDTIME 01/24/25 01/24/25 prazosin 2 mg capsule 2 mg PO BEDTIME 01/24/25 01/24/25 quetiapine 400 mg tablet 400 mg PO BEDTIME 01/24/25 01/24/25 sennosides 8.6 mg-docusate sodium 8.6 tab PO BID 01/24/25 01/24/25 50 mg tablet (Senexon-S) topiramate 25 mg tablet 25 mg PO DAILY 01/24/25 01/24/25 trazodone 50 mg tablet 100 mg PO BEDTIME 01/24/25 01/24/25 Previous Rx's ?Medication ?Instructions ?Recorded gabapentin 300 mg capsule 300 mg PO TID #9 caps 08/09/24 haloperidol 5 mg tablet 5 mg PO BEDTIME #3 tabs 08/09/24 sertraline 100 mg tablet 100 mg PO DAILY #3 tabs 08/09/24 buprenorphine 8 mg-naloxone 2 mg 1 film buccal BID #6 ea 08/10/24 sublingual film (Suboxone) Allergies Allergy/AdvReac Type Severity Reaction Status Date / Time No Known Allergies Allergy Verified 01/24/25 12:18 Review of Systems Constitutional: Constitutional: Reports as per HPI [facility] Past Medical History Medical History Mood disorder ADHD Opiate use Social History Social History Unable to assess alcohol history related to: Unknown Patient Tobacco Use Status: Tobacco use Unknown Advance Directives: No Advance Directives Information Provided: Yes Do you have a plan to hurt others: No Plan Physical Exam Exam: Exam: General: Appears of stated age ? CV: RRR, no obvious murmurs appreciated ? Resp: ?No wheezing rales rhonchi no stridor moving air well ? Abd: ?Bowel sounds are present, no tenderness no rebound no rigidity ? MSK: FROM, strength 5/5 all extremities ? Skin: Warm, dry, intact, ? Neuro: ?Alert and oriented x3, moving upper and lower extremities symmetrically, no obvious facial asymmetry noted, cranial nerves 2-12 intact psych: endorses SI no HI, good eye contact Vital Signs: Vital Signs: Last Vital Signs Temp 97.2 F 01/25/25 08:34 Pulse 79 01/25/25 08:34 Resp 20 01/25/25 08:34 BP 102/62 01/25/25 08:34 Pulse Ox 97 01/25/25 08:34 O2 Del Method Room Air 01/25/25 08:34 BMI result Body Mass Index 24.1 Course Course Course Narrative: This is a rapid medical exam performed by Roberto Rodriguez NP: Additional HPI, ROS, PE not included below will be deferred to primary provider. Patient is a 34y/o M with pmhx of substance abuse, ADHD presenting with complaint of SI with plan to overdose on drugs. States he was discharged from [facility] this morning and didn't feel he was ready to leave. Denies HI. Plan: med clearance then CARE team eval Reevaluation(s) Reevaluation #1: Time: 15:53 Date: 01/24/25 Provider: Davie Henry, DO Inpatient level of currently? Patient is in bed search status Reevaluation #2: 01/25/2025 09:38 remained stable plan is to transfer the patient to [facility] this is we will end the ED observation status Time: 09:38 Medications Administered Generic Name Dose Route Start Last Admin Trade Name Freq PRN Reason Stop Dose Admin Benztropine Mesylate 0.5 mg 01/25/25 09:00 01/25/25 08:31 Benztropine Mesylate 0.5 Mg Tablet PO 0.5 mg DAILY REHAN Administration Buprenorphine/Naloxone 1 film 01/24/25 21:00 01/25/25 08:31 Buprenorphine/Naloxone 8/2 Mg Film BUCCAL 1 film BID REHAN Administration Gabapentin 300 mg 01/24/25 21:00 01/25/25 08:31 Gabapentin 300 Mg Capsule PO 300 mg TID REHAN Administration Haloperidol 5 mg 01/24/25 21:00 01/24/25 21:05 Haloperidol 5 Mg Tablet PO 5 mg BEDTIME REHAN Administration Melatonin 9 mg 01/24/25 21:00 01/24/25 21:11 Melatonin 3 Mg Tablet PO 9 mg BEDTIME REHAN Administration Prazosin HCl 1 mg 01/24/25 21:00 01/24/25 21:05 Prazosin Hcl 1 Mg Capsule PO 1 mg BEDTIME REHAN Administration Protocol Prazosin HCl 2 mg 01/24/25 21:00 01/24/25 21:06 Prazosin Hcl 1 Mg Capsule PO 2 mg BEDTIME REHAN Administration Protocol Quetiapine Fumarate 400 mg 01/24/25 21:00 01/24/25 21:05 Quetiapine Fumarate 400 Mg Tablet PO 400 mg BEDTIME REHAN Administration Senna/Docusate Sodium 1 tab 01/25/25 09:00 01/25/25 08:31 Sennosides/Docusate Sodium Tablet PO 1 tab BID REHAN Administration Sertraline HCl 100 mg 01/25/25 09:00 01/25/25 08:31 Sertraline Hcl 100 Mg Tablet PO 100 mg DAILY REHAN Administration Topiramate 25 mg 01/25/25 09:00 01/25/25 08:31 Topiramate 25 Mg Tablet PO 25 mg DAILY REHAN Administration Trazodone HCl 100 mg 01/24/25 21:00 01/24/25 21:06 Trazodone Hcl 100 Mg Tablet PO 100 mg BEDTIME REHAN Administration Discontinued Medications Generic Name Dose Route Start Last Admin Trade Name Dai CORBINN Reason Stop Dose Admin Senna/Docusate Sodium 8.6 tab 01/24/25 21:00 01/24/25 21:05 Sennosides/Docusate Sodium Tablet PO 1 tab BID REHAN Administration Medical Decision Making Medical Decision Making MDM Narrative: 12:36 PM 01/24/2025 (Dr. Davie Henry): just spent 30 days in rehab, presented to the ER looking for longer stay, low risk for withdrawal, no trauma, although he is endorsing SI he also admits that he is here because homeless, on Suboxone 8 mg twice a day, 1st dose he states he already took today Differential Diagnosis Differential Diagnoses: The differential diagnosis associated with the presentation includes ( SI, HI, homelessness, dehydration, trauma, substance use disorder) Consult Healthcare Provider Management of the patient was discussed with: Behavioral Health Provider Lab Data [facility] Lab Attestation statement: I reviewed the patient's lab results. 01/24/25 12:42 01/24/25 12:42 Labs: Lab Results 01/24/25 Range/Units 12:42 WBC 5.1 (4.8-10.8) X10*3/uL RBC 4.50 L (4.60-5.80) X10*6/uL Hgb 13.7 L (14.0-18.0) g/dl Hct 39.2 L (42.0-52.0) % MCV 87.1 (80.0-98.0) fL MCH 30.4 (27.0-33.0) pg MCHC 34.9 (31.0-36.0) g/dl RDW 13.1 (11.0-16.0) % Plt Count 250 (160-400) X10*3/uL MPV 9.0 L (9.4-12.4) fL Immature Gran % (Auto) 0.2 (0.0-0.4) % Neut % (Auto) 34.8 L (45-73) % Lymph % (Auto) 40.2 H (20-40) % [place] % (Auto) 13.3 H (2-11) % Eos % (Auto) 10.7 H (0-4) % Baso % (Auto) 0.8 (0-2) % Lymph # (Auto) 2.0 (1.2-4.9) X10*3/uL [place] # (Auto) 0.7 (0.1-1.2) X10*3/uL Eos # (Auto) 0.5 H (0.0-0.4) X10*3/uL Baso # (Auto) 0.0 (0.0-0.2) X10*3/uL Abs Immat Gran (auto) 0.01 (0.00-0.03) X10*3/uL Absolute Neuts (auto) 1.8 L (2.0-8.3) x10*3/uL Absolute Nucleated RBC 0.000 (0.0-0.012) X10*3/uL Nucleated RBC % (auto) 0.0 (0.0-0.2) /100WBC Sodium 139 (135-145) mmol/L Potassium 4.1 (3.3-5.1) mmol/L Chloride 107 (96-108) mmol/L Carbon Dioxide 26 (22-29) mmol/L Anion Gap 10 L (12-20) BUN 15 (9-16) mg/dL Creatinine 0.94 (0.5-1.4) mg/dL Estim Creat Clear Calc 94.5 Estimated GFR > 60 Random Glucose 101 (60-115) mg/dL Calcium 9.0 (8.4-10.2) mg/dL Total Bilirubin 0.2 (0.0-1.0) mg/dL AST 22 (5-37) U/L ALT 15 (0-40) U/L Alkaline Phosphatase 56 (39-117) U/L Total Protein 6.9 (6.5-8.0) g/dL Albumin 4.4 (3.5-5.0) g/dL Urine Color Yellow Urine Appearance Clear Urine pH 6.0 (5.0-9.0) Ur Specific [place] 1.020 (1.005-1.025) Urine Protein Negative (Neg-Trace) mg/dL Urine Glucose (UA) Negative (Negative) mg/dL Urine Ketones Negative (Negative) mg/dL Urine Blood Negative (Negative) Urine Nitrite Negative (Negative) Ur Leukocyte Esterase Negative (Negative) Urine Opiates Screen Not Detected (Not Detect) Ur Buprenorphine Scrn Positive H (Not Detect) ng/mL Ur Oxycodone Screen Not Detected (Not Detect) ng/mL Urine Methadone Screen Not Detected (Not Detect) ng/mL Urine Fentanyl Screen Not Detected (Not Detect) Ur Barbiturates Screen Not Detected (Not Detect) Ur Phencyclidine Scrn Not Detected (Not Detect) Ur Amphetamines Screen Not Detected (Not Detect) U Benzodiazepines Scrn Not Detected (Not Detect) Urine Cocaine Screen Not Detected (Not Detect) U Marijuana (THC) Screen Not Detected (Not Detect) Ethyl Alcohol < 10 mg/dL Influenza Type A (PCR) NEGATIVE (Negative) Influenza Type B (PCR) NEGATIVE (Negative) RSV RNA Qual (PCR) NEGATIVE (Negative) SARS-CoV-2 RNA (RT-PCR) NEGATIVE (Negative) Discharge Plan Discharge Clinical Impression: Suicidal ideation, Polysubstance use disorder, Has access to planned means of suicide Patient Disposition: Xfer Psychiatric Hosp Transfer Details: TO: DR MEHDI RODRIGUEZ ACCEPTING Additional Instructions: You were seen in our Emergency Department today for treatment of a behavioral health issue. It is important after your visit that you follow up with either your behavioral health provider or a primary care doctor within 7 days.? If you have trouble finding a therapist you can reach out to [place] [phone] The [place] [facility] can be reached 7 days a week 24 hours a day.? Call [phone] to speak with someone.? Return for any worsening symptoms or concerns such as thoughts of self harm or harm to others. Please call 911 if you feel your mental health is worsening.? Prescriptions: No Action gabapentin 300 mg capsule 300 mg PO TID Qty: 9 0RF sertraline 100 mg tablet 100 mg PO DAILY Qty: 3 0RF haloperidol 5 mg tablet 5 mg PO BEDTIME Qty: 3 0RF buprenorphine-naloxone [Suboxone] 8-2 mg film 1 film buccal BID Qty: 6 0RF trazodone 50 mg tablet 100 mg PO BEDTIME benztropine 0.5 mg tablet 0.5 mg PO DAILY prazosin 1 mg capsule 1 mg PO BEDTIME sennosides-docusate sodium [Senexon-S] 8.6-50 mg tablet 8.6 tab PO BID topiramate 25 mg tablet 25 mg PO DAILY prazosin 2 mg capsule 2 mg PO BEDTIME quetiapine 400 mg tablet 400 mg PO BEDTIME melatonin 3 mg tablet 9 mg PO BEDTIME diphenhydramine HCl 25 mg capsule 25 mg PO BEDTIME PRN (Reason: Insomnia) Referrals: [facility] [Outside] Rashaad Jorge PA [Primary Care Provider, Internal Medicine] Interventions: [place]-Suicide Risk Severity Scale Last Done: 01/24/25 12:30 Print Language: Mongolian
[2025-01-24 12:14] VITALS: BP 116/83; PULSE 75; RESP 16; TEMP 36.4; O2SAT 95; BMI 24.1
[2025-01-24 12:50] LABS: MANUAL DIFF FLAG NO
[2025-01-24 12:51] LABS: Hematocrit 39.2 % (42.0-52.0); Hemoglobin 13.7 g/dl (14.0-18.0); Imm Gran Abs Auto 0.01 X10*3/uL (0.00-0.03); Imm Gran Pct Auto 0.2 % (0.0-0.4); Lymphocytes Absolute Auto 2.0 X10*3/uL (1.2-4.9); Mean Corpuscular HGB Conc 34.9 g/dl (31.0-36.0); Mean Corpuscular Hemoglobin 30.4 pg (27.0-33.0); Mean Corpuscular Volume 87.1 fL (80.0-98.0); NRBC Abs Auto 0.000 X10*3/uL (0.0-0.012); NRBC Pct Auto 0.0 /100WBC (0.0-0.2); Platelet Count 250 X10*3/uL (160-400); Red Blood Count 4.50 X10*6/uL (4.60-5.80); White Blood Count 5.1 X10*3/uL (4.8-10.8)
[2025-01-24 12:53] LABS: Appearance Urine Clear; Glucose Urine UA Negative (Negative); PH 6.0 (5.0-9.0); Specific Gravity - Urine 1.020 (1.005-1.025)
[2025-01-24 13:01] LABS: Cannabinoid Screen Urine Not Detected (Not Detect)
[2025-01-24 13:08] LABS: Albumin Level 4.4 g/dL (3.5-5.0); Anion Gap 10 (12-20); Calcium 9.0 mg/dL (8.4-10.2); Carbon Dioxide 26 mmol/L (22-29); Chloride 107 mmol/L (96-108); Potassium 4.1 mmol/L (3.3-5.1); Sodium 139 mmol/L (135-145); Total Protein 6.9 g/dL (6.5-8.0)
[2025-01-24 13:16] LABS: Alanine Aminotransferase 15 U/L (0-40); Alkaline Phosphatase 56 U/L (39-117); Aspartate Amino Transferase 22 U/L (5-37); Blood Urea Nitrogen 15 mg/dL (9-16); Creatinine Clr Calc Pharmacy 94.5; Estimated Glomerular Filt Rate > 60
[2025-01-24 13:52] LABS: Resp Syncy Virus RNA Qual PCR NEGATIVE (Negative); SARS COV2 PCR INHOUSE NEGATIVE (Negative)
--- OUTSIDE RECORDS SUMMARY | 2025-01-24 20:33 | XMS_ITS | Clinical Summary ---
Author Organization [facility] Address [address] [place] [address] Phone Care Team Providers Care Rail Signal Worker Name Role Phone Rashaad Jorge Primary Care Provider + Allergies No known active allergies Medications cloNIDine (CATAPRES) 0.1 mg tablet Take 1 tablet (0.1 mg total) by mouth 4 (four) times a day if needed (anxiety). 07/25/2024 Active sertraline (ZOLOFT) 100 mg tablet Take 1 tablet (100 mg total) by mouth 1 (one) time each day. 07/25/2024 Active QUEtiapine (SEROquel) 50 mg tablet Take 1 tablet (50 mg total) by mouth 2 (two) times a day. 07/25/2024 Active Suboxone 8-2 mg per SL film Place 1 film under the tongue 2 (two) times a day. Max Daily Amount: 2 films 07/25/2024 Active traZODone (DESYREL) 100 mg tablet 2 tablets (200 mg total) at bedtime. 07/25/2024 Active melatonin 3 mg tablet 2 tablets (6 mg total) at bedtime. 07/25/2024 Active gabapentin (NEURONTIN) 600 mg tablet Take 1 tablet (600 mg total) by mouth 3 (three) times a day. 07/25/2024 Active nicotine (NICODERM CQ) 21 mg/24 hr 1 patch 1 (one) time each day at the same time. 07/25/2024 Active QUEtiapine (SEROquel) 400 mg tablet Take 1 tablet (400 mg total) by mouth at bedtime. 07/27/2024 Active atomoxetine (STRATTERA) 10 mg capsule Take 2 capsules (20 mg total) by mouth 1 (one) time each day. 07/25/2024 Active Active Problems Problem Noted Date Diagnosed Date Alcohol use disorder, mild, abuse 07/29/2024 Overview (07/30/2024): Per [facility] Medical History Medical History Date Comments Bipolar 1 disorder ([facility] V24, [facility] V28) Per [facility] assessment Opiate use Cocaine abuse, uncomplicated ([facility] V24, [facility] V28) 07/29/2024 Per [facility] Alcohol use disorder, mild, abuse 07/29/2024 Per [facility] Social History Tobacco Use Types Packs/Day Years Used Date Smoking Tobacco: Never Assessed Sex and Gender Information Value Date Recorded Sex Assigned at Not on file Legal Sex Male 7:47 PM EDT Gender Identity Not on file Sexual Orientation Not on file Obstetrics History Last Filed Vital Signs Vital Sign Reading Time Taken Comments Blood Pressure 110/74 07/30/2024 5:49 PM EDT Pulse 62 07/30/2024 5:49 PM EDT Temperature 36.9 C (98.4 F) 07/30/2024 5:49 PM EDT Respiratory Rate 16 07/30/2024 5:49 PM EDT Oxygen Saturation 100% 07/30/2024 5:49 PM EDT Inhaled Oxygen Concentration - - Weight 61.2 kg (135 lb) 07/29/2024 8:09 PM EDT Height 165.1 cm (5' 5 ) 07/29/2024 8:09 PM EDT Body Mass Index 22.47 07/29/2024 8:09 PM EDT Plan of Treatment Health Maintenance Due Date Last Done Comments DTaP,Tdap,and Td Vaccines (1 - Tdap) 08/30/2007 Hepatitis A Vaccines (1 of 2 - Risk 2-dose series) 08/30/2007 Hepatitis B Vaccines (1 of 3 - 19+ 3-dose series) 08/30/2007 HPV Vaccines (1 - 3-dose SCD M series) 08/30/2015 Depression Screening 03/13/2024 Cholesterol Screening (Lipid Panel) 07/30/2024 HIV Screening 07/30/2024 Hepatitis C Screening 07/30/2024 Social Influencers of Health Screening 07/30/2024 COVID-19 Vaccine ( - 2024-2 6 season) 2024 Influenza Vaccine (#1) 2024 RSV Immunization Adult Patie nts (1 - 1-dose 75+ series) 08/30/2063 HIB Vaccines Aged Out No longer eligi ble based on patient's age to complete this topic IPV Vaccines Aged Out No longer eligi ble based on patient's age to complete this topic MMR Vaccines Aged Out No longer eligi ble based on patient's age to complete this topic Meningococcal ACWY Vaccine Aged Out N o longer eligible based on patient's age to complete this topic Meningococcal B Vaccine Aged Out No l onger eligible based on patient's age to complete this topic Pneumococcal Vaccine: Pediat rics (0 to 5 Years) and At-Risk Patients (6 to 49 Years) Aged Out No longer eligible b ased on patient's age to complete this topic RSV Immunization Patients Un shilpa 20 months Aged Out No longer eligible b ased on patient's age to complete this topic Varicella Vaccines Aged Out No longer eligible based on patient's age to complete this topic Insurance [facility] [id number] [place] [address] Care Teams Rail Signal Worker Relationship Specialty Start Date End Date Rashaad Jorge PA [address] [place] [address] PCP - General 07/29/24
--- NOTE | 2025-01-24 21:31 | MHC.CARE ---
Rad Team faxed assessment TO MARTINE BUCKLEY, VALENTIN VARGAS, JOSE JUAN CORBETT AND SENTHIL
[2025-01-25 00:10] VITALS: BP 120/61; PULSE 64; RESP 14; TEMP 36.4; O2SAT 95
--- NOTE | 2025-01-25 00:31 | MHC.CARE ---
[facility] was contacted to inquire if pt was discharged from [facility] today and to determine the discharge plan post discharge. Per [facility] staff, pt completed CSS today and was referred and accepted to [facility] located on [address] in [place], [place]. 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 [facility] central intake was contacted who requested a call back number so a higher up at the [facility] program could contact back to provide further information. Kayla from [facility] contacted the care team ([phone]) and indicated that the pt presented to the program but within minutes of arrival stated that he did not want to stay at the program and was requesting to be transported to the ED. She stated that the [facility] program was not requesting for him to be transported to the ED but that the pt himself was insistent on being brought to the ED at which time she indicated staff provided him with transportation to [facility] per pt's request. She stated that due to pt not wanting to remain at the program that he was admitted and discharged AMA per his request and indicated that she no longer has the bed available at this time. She indicated that he could re refer to [facility] however, stated due to leaving AMA he would have to be further reviewed before being re accepted if found clinically appropriate and had no time line of if or when a bed would become available and indicated that there is a wait list and pt's usually will wait for beds to become available. [facility] was also contacted for further collateral and Ameena the crisis inspection and testing supervisor indicated that pt was last seen in November of this year with an almost identical presentation. She indicated at that time he presented to [facility] from his sober living program the [facility] and pt reported at that time that he chose to leave the program AMA as he wanted to use substances and utilized crack cocaine prior to arrival to the ED. [facility] indicated that when seen by crisis at that time pt stated that he was SI with plan to overdose intentionally due to homelessness and stated he appeared to be intentionally increasing symptoms in order to achieve a secondary gain of housing as he was homeless after deciding to leave his sober living AMA. She reported that he typically will present to the ED with SI with plan to intentionally overdose and has only self reports of previous attempts in the past. Per [facility], pt appears to lack insight into his substance use as well as leaving multiple different termite control service representative substance use treatment programs AMA despite having stable housing to return to once he transitions back to the community. She indicated that typically his SI appears to be in the context of homelessness and has a known history of treatment and medication non compliance.
--- NOTE | 2025-01-25 00:45 | MHC.CARE ---
[facility] contacted the Care Team back and indicated that some of his scripts were sent to [address] [place] [address] [facility] as that is the preferred pharmacy for [facility] as they were going to deliver his medications to [facility] once he arrived. [facility] was closed at the time of the evaluation so further follow up regarding what medications are at the pharmacy currently was not able to be obtained at this time.
--- NOTE | 2025-01-25 07:45 | PC.NURSE ---
Assumed care of patient at 0645, patient appears to be in no apparent distress this am, resting in bed, respirations even and unlabored. Continue plan of care for [facility]
--- NOTE | 2025-01-25 08:13 | MHC.CARE ---
Pt accepted to [address] Joselo CEVALLOS next available transport
[2025-01-25 08:34] VITALS: BP 102/62; PULSE 79; RESP 20; TEMP 36.2; O2SAT 97
[2025-01-25 09:55] VITALS: BP 102/62; PULSE 79; RESP 20; TEMP 36.2; O2SAT 97
== END 2025-01-25 10:10 ==
PROVIDERS: Registered Nurse Emergency; Emergency Provider Emergency Medicine; PCP Student in an Organized Health Care Education/Training Program
DX: R45.851 Suicidal ideations (principal); F19.90 Other psychoactive substance use, unspecified, uncomplicated; Z59.00 Homelessness unspecified; Z79.899 Other long term (current) drug therapy
CPT/HCPCS: 36415; 80053; 80307; 81003; 85025; 87637; 99285; S9485

== ENCOUNTER 2025-02-04 14:24 | Emergency (ER) | payer OTHER, SELFPAY ==
[2025-02-04 14:30] VITALS: BP 134/90; BP 155/82; PULSE 126; PULSE 137; RESP 15; TEMP 36.7; O2SAT 96; BMI 29.2
--- NOTE | 2025-02-04 14:38 | ED.GENADULT ---
HPI - General Adult General Chief complaint: General Medical Stated complaint: MISSING MEDS FROM [facility] PER EMS Source: patient, EMS and old records reviewed Mode of arrival: EMS Limitations: no limitations History of Present Illness ED Provider: MARKUS ESPINOSA narrative: 34-year-old male with past medical history of opiate use disorder, mood disorder, who comes in with complaint of not having his medications prescribed after DC from [facility]. He states they never prescribed any medication. He states he went to the pharmacy after discharge and they told him no meds were there. He denies any SI or HI. He states he can not tell me what pharmacy he went to but goes to [facility] complaint: Lack of medication Onset (ago): hour(s) (One) Radiation: non-radiation Severity: mild Relieving factors: none Exacerbating factors: none Associated symptoms: denies other symptoms Treatments prior to arrival: none Related Data Home Medications ?Medication ?Instructions ?Recorded ?Confirmed benztropine 0.5 mg tablet 0.5 mg PO DAILY 01/24/25 01/24/25 diphenhydramine HCl 25 mg capsule 25 mg PO BEDTIME PRN Insomnia 01/24/25 01/24/25 melatonin 3 mg tablet 9 mg PO BEDTIME 01/24/25 01/24/25 prazosin 1 mg capsule 1 mg PO BEDTIME 01/24/25 01/24/25 prazosin 2 mg capsule 2 mg PO BEDTIME 01/24/25 01/24/25 quetiapine 400 mg tablet 400 mg PO BEDTIME 01/24/25 01/24/25 sennosides 8.6 mg-docusate sodium 8.6 tab PO BID 01/24/25 01/24/25 50 mg tablet (Senexon-S) topiramate 25 mg tablet 25 mg PO DAILY 01/24/25 01/24/25 trazodone 50 mg tablet 100 mg PO BEDTIME 01/24/25 01/24/25 Previous Rx's ?Medication ?Instructions ?Recorded gabapentin 300 mg capsule 300 mg PO TID #9 caps 08/09/24 haloperidol 5 mg tablet 5 mg PO BEDTIME #3 tabs 08/09/24 sertraline 100 mg tablet 100 mg PO DAILY #3 tabs 08/09/24 buprenorphine 8 mg-naloxone 2 mg 1 film buccal BID #6 ea 08/10/24 sublingual film (Suboxone) buprenorphine 8 mg-naloxone 2 mg 1 film buccal BID #14 ea 02/04/25 sublingual film (Suboxone) Allergies Allergy/AdvReac Type Severity Reaction Status Date / Time No Known Allergies Allergy Verified 02/04/25 14:33 Review of Systems Review of Systems: Yes all other systems are reviewed and are negative [facility] Past Medical History Attestation statement: The following information was validated with the patient. Source: old records reviewed Medical History Mood disorder ADHD Opiate use Social History Social History Patient Tobacco Use Status: Tobacco use Unknown Advance Directives: No Advance Directives Information Provided: Yes Do you have a plan to hurt others: No Plan Physical Exam ED Vital Signs: Vital Signs - 24 hr 02/04/25 14:30 Temperature 98.1 F Pulse Rate 126 H Respiratory Rate 15 Blood Pressure 134/90 H Pulse Oximetry 96 Oxygen Delivery Method Room Air BMI result Body Mass Index 29.2 Appearance: Alert. Oriented X3. anxious, mild acute distress. sleeping but woken up easily no issues Eyes: Pupils equal, round and reactive to light. ENT: Pharynx normal. Neck: Normal inspection. Neck supple. CVS: tachycardic heart rate and rhythm. Pulses normal. Respiratory: No respiratory distress. Breath sounds normal. Abdomen: Soft and nontender. Skin: Skin warm and dry. pale skin color. Extremities: No lower extremity edema. Neuro: Oriented X 3. No motor deficit. No sensory deficit. Course Course Course Narrative: 3:05 PM 02/04/2025 (MARKUS GONZALEZ): I suspect his tachycardia is due to anxiety 3:26 PM 02/04/2025 (MARKUS GONZALEZ): As was discussed with staff at [facility], patient stated he was going right to the ED on discharge as he was homeless. On arrival here he denied SI or HI and actually was here asking for medications so he could leave. We were discharging him as his labs came back reassuring and now tells the nurse he plans to hurt himself. I have very low suspicion that this is going to happen as he had none of these symptoms until discharge. And he already made these threats toward the staff at [facility]. CARE team is going to talk to him and he will be DC Medical Decision Making Medical Decision Making [facility] Narrative: 34-year-old male with past medical history of opiate use disorder, mood disorder, who comes in with complaint of not having his medications. This story seems very atypical. I am going to discuss this with [facility] and [facility]. We will obtain basic labs. If labs reassuring we will DC out to pharmacy. I did confirm with pharmacy that the Suboxone prescription was not written I will write the 8/2 sublingual b.i.d. for 1 week can follow up with his prescriber. Differential Diagnosis Differential Diagnoses: The differential diagnosis associated with the presentation includes Lack of housing, poor insight, anemia, dehydration Admission/Observation Consideration of admission/observation: Escalation of care including admission/observation considered Patient was given the address to [facility] Provider Management of the patient was discussed with: Ship'S Captain spoke to RN covering [facility] at [facility]: DC medications cogentin 0.5mg QHS gabapentin 300mg TID haldol 5mg QHS atarax 50mg Q4H PRN anxiety trazodone 100mg QHS setraline 150mg daily seroquel 400mg QHS prazoson 1mg three caps at bedtime suboxone - 8/2mg 1 film BID sent to [facility] Staff state he told them he is going right to the emergency room on discharge as he is homeless Discussed with pharmacist at [facility] he actually has never been to the pharmacy today all the medications are there other than Suboxone and are pending him she states the last time he has not filled his Suboxone since November Lab Data [facility] Lab Attestation statement: I reviewed the patient's lab results. 02/04/25 14:48 02/04/25 14:48 Labs: Lab Results 02/04/25 Range/Units 14:48 WBC 7.5 (4.8-10.8) X10*3/uL RBC 4.47 L (4.60-5.80) X10*6/uL Hgb 13.7 L (14.0-18.0) g/dl Hct 39.6 L (42.0-52.0) % MCV 88.6 (80.0-98.0) fL MCH 30.6 (27.0-33.0) pg MCHC 34.6 (31.0-36.0) g/dl RDW 13.1 (11.0-16.0) % Plt Count 221 (160-400) X10*3/uL MPV 10.1 (9.4-12.4) fL Immature Gran % (Auto) 0.3 (0.0-0.4) % Neut % (Auto) 59.5 (45-73) % Lymph % (Auto) 26.1 (20-40) % [place] % (Auto) 9.5 (2-11) % Eos % (Auto) 4.2 H (0-4) % Baso % (Auto) 0.4 (0-2) % Lymph # (Auto) 2.0 (1.2-4.9) X10*3/uL [place] # (Auto) 0.7 (0.1-1.2) X10*3/uL Eos # (Auto) 0.3 (0.0-0.4) X10*3/uL Baso # (Auto) 0.0 (0.0-0.2) X10*3/uL Abs Immat Gran (auto) 0.02 (0.00-0.03) X10*3/uL Absolute Neuts (auto) 4.4 (2.0-8.3) x10*3/uL Absolute Nucleated RBC 0.000 (0.0-0.012) X10*3/uL Nucleated RBC % (auto) 0.0 (0.0-0.2) /100WBC Sodium 142 (135-145) mmol/L Potassium 3.8 (3.3-5.1) mmol/L Chloride 108 (96-108) mmol/L Carbon Dioxide 25 (22-29) mmol/L Anion Gap 13 (12-20) BUN 17 H (9-16) mg/dL Creatinine 1.12 (0.5-1.4) mg/dL Estim Creat Clear Calc 88.7 Estimated GFR > 60 Random Glucose 142 H (60-115) mg/dL Calcium 9.2 (8.4-10.2) mg/dL Total Bilirubin 0.2 (0.0-1.0) mg/dL Direct Bilirubin < 0.2 (0.0-0.5) mg/dL AST 30 (5-37) U/L ALT 18 (0-40) U/L Alkaline Phosphatase 61 (39-117) U/L Total Protein 7.0 (6.5-8.0) g/dL Albumin 4.5 (3.5-5.0) g/dL Independent Historian Clinical information obtained from an independent historian. History obtained from or confirmed by: EMS External Record Review External record reviewed: Inpatient record, Outpatient record and Prior outpatient labs Social Determinants Patient?s care significantly limited by Social Determinants of Health including: Inadequate housing, Low income and Unemployment Discharge Plan Discharge Clinical Impression: Mood disorder Patient Disposition: Home, Self-Care Instructions: Mood Disorders (ED) Additional Instructions: Opiate use disorder You were seen in our Emergency Department today for treatment of opiate use disorder. You may have been dosed with medication for opiate use disorder (MOUD) in the form of suboxone or methadone. You may experience feeling some withdrawal symptoms and this is normal. The? dose in the Emergency Department is a starting dose and meant to be titrated up once you follow up with a clinic. Please do not feel discouraged, it is a process. The nurse has reviewed with you where to follow up and what information to bring with you, to continue treatment. You also may have been given naloxone (narcan) to take home with you. This medication is used to potentially treat opiate overdose. If you decide you want to stop or cut down on how much you?re using, you can call or walk into our outpatient Addiction Treatment office: [facility] (M-F 9am-5p) [address] [place] [address], [address] [phone] You may have been provided with safer injection?items, please take time to take care of YOU and your health. Use new supplies whenever possible to lessen the chances of infections and other illnesses.? ?If you need more supplies, please go [facility],? [address], [place] you can call or text to coordinate delivery of safer supplies. You were also provided a list of several treatment providers in the area.? If you experience any worsening symptoms you cannot control please return to the ED or call 911. Please follow up at your next appointment. Things to look out for are fevers, chest pain, shortness of breath, severe pain, dizziness, fainting or any other concerns. Prescriptions: New buprenorphine-naloxone [Suboxone] 8-2 mg film 1 film buccal BID Qty: 14 0RF No Action gabapentin 300 mg capsule 300 mg PO TID Qty: 9 0RF sertraline 100 mg tablet 100 mg PO DAILY Qty: 3 0RF haloperidol 5 mg tablet 5 mg PO BEDTIME Qty: 3 0RF buprenorphine-naloxone [Suboxone] 8-2 mg film 1 film buccal BID Qty: 6 0RF trazodone 50 mg tablet 100 mg PO BEDTIME benztropine 0.5 mg tablet 0.5 mg PO DAILY prazosin 1 mg capsule 1 mg PO BEDTIME sennosides-docusate sodium [Senexon-S] 8.6-50 mg tablet 8.6 tab PO BID topiramate 25 mg tablet 25 mg PO DAILY prazosin 2 mg capsule 2 mg PO BEDTIME quetiapine 400 mg tablet 400 mg PO BEDTIME melatonin 3 mg tablet 9 mg PO BEDTIME diphenhydramine HCl 25 mg capsule 25 mg PO BEDTIME PRN (Reason: Insomnia) Print Language: Bermudian
[2025-02-04 14:52] LABS: MANUAL DIFF FLAG NO
[2025-02-04 14:53] LABS: Hematocrit 39.6 % (42.0-52.0); Hemoglobin 13.7 g/dl (14.0-18.0); Imm Gran Abs Auto 0.02 X10*3/uL (0.00-0.03); Imm Gran Pct Auto 0.3 % (0.0-0.4); Lymphocytes Absolute Auto 2.0 X10*3/uL (1.2-4.9); Mean Corpuscular HGB Conc 34.6 g/dl (31.0-36.0); Mean Corpuscular Hemoglobin 30.6 pg (27.0-33.0); Mean Corpuscular Volume 88.6 fL (80.0-98.0); NRBC Abs Auto 0.000 X10*3/uL (0.0-0.012); NRBC Pct Auto 0.0 /100WBC (0.0-0.2); Platelet Count 221 X10*3/uL (160-400); Red Blood Count 4.47 X10*6/uL (4.60-5.80); White Blood Count 7.5 X10*3/uL (4.8-10.8)
[2025-02-04 15:23] LABS: Alanine Aminotransferase 18 U/L (0-40); Albumin Level 4.5 g/dL (3.5-5.0); Alkaline Phosphatase 61 U/L (39-117); Anion Gap 13 (12-20); Aspartate Amino Transferase 30 U/L (5-37); Blood Urea Nitrogen 17 mg/dL (9-16); Calcium 9.2 mg/dL (8.4-10.2); Carbon Dioxide 25 mmol/L (22-29); Chloride 108 mmol/L (96-108); Creatinine Clr Calc Pharmacy 88.7; Estimated Glomerular Filt Rate > 60; Potassium 3.8 mmol/L (3.3-5.1); Sodium 142 mmol/L (135-145); Total Protein 7.0 g/dL (6.5-8.0)
--- NOTE | 2025-02-04 15:33 | MHC.CARE ---
T/W spoke with Pt at the request of ED provider. Pt was discharged from [facility] this afternoon and self presented to the [facility] ED reporting that he was discharged from [facility] without medications. Pt reported he went to the [place] pharmacy to cone picker medications and they were not there. Dr. Massey contacted [facility] and staff reported that at D/C today Pt stated I am going to another emergency room because I am homeless. Dr. Massey contacted [facility] in [place] who stated that Pt's medications are filled at the pharmacy ready to be picked up and that Pt did not present to the pharmacy today as previously stated. Pt was provided with the address to [place] and a D/C was placed. Pt then endorsed SI. Pt's SI appears to be in the context of homelessness and utilizing the ED for skilled nursing as he reported to [facility] he planned to do. T/W informed Pt he received treatment at [facility], can cone picker medications and follow up with current providers. Pt stated but I don't want to live. Pt did not identify any plan or intent to harm himself at this time. T/W informed Pt that there would be no clinical reason for Pt to be admitted to the [facility] ED and he would be discharged at this time. Pt stated he understood this plan. Pt will D/C at this time.
[2025-02-04] MEDS: Naloxone HCl Nasal TAKE HOME 4 MG SPRAY 8 MG NOSTRILALT (15:38)
--- NOTE | 2025-02-04 15:41 | PC.NURSE ---
Just prior to d/c, Pt approaches this RN to demand to see crisis. He states he is not ready to deal with this bull shit Pt is unable to clearly identify what he would like to speak with crisis about and is unable to clearly confirm or deny SI/HI at this time. ED Provider and english as a second language instructor made aware. Care Team come to meet with Pt immediately and Pt is cleared for d/c.
[2025-02-04 15:45] VITALS: BP 134/90; PULSE 126; RESP 15; TEMP 36.7; O2SAT 96
--- OUTSIDE RECORDS SUMMARY | 2025-02-04 18:36 | XMS_ITS | Clinical Summary ---
Author Organization [facility] Address [address] [place] [address] Phone Care Team Providers Care Matzo Forming Machine Operator Name Role Phone Rashaad Jorge Primary Care [...] disorder, mild, abuse 07/29/2024 Overview (07/30/2024): Per [facility] Encounters Date Type Department Care Team Description 01/27/2025 Lab Requisition [facility] [address] [place] [address] Kelli Singh NP 01/27/2025 Lab Requisition [facility] [address] [place] [address] Kelli Singh NP Other care home (current) drug therapy from Last 3 Months Medical History Medical History Date Comments Bipolar 1 disorder ([facility] V24, [facility]/HCC V28) Per [facility] assessment Opiate use Cocaine abuse, uncomplicated (CMS/HCC V24, CMS/ CC V28) 07/29/2024 Per [facility] Alcohol use disorder, mild, abuse 07/29/2024 Per [facility] Social History Tobacco Use Types Packs/Day Years [...] SCD M series) 08/30/2015 Depression Screening 03/13/2024 HIV Screening 07/30/2024 Hepatitis C Screening 07/30/2024 Social Influencers of Health Screening 07/30/2024 COVID-19 Vaccine (1 - 2024-2 6 season) 2024 Influenza Vaccine (#1) 2024 Cholesterol Screening (Lipid Panel) 01/27/2030 01/27/2025 RSV Immunization Adult Patie nts (1 - [...] to 49 Years) Aged Out No longer eligi ble based on patient's age to complete this topic RSV Immunization Patients Un shilpa 20 months Aged Out No longer eligible b ased on patient's age to complete this topic Varicella Vaccines Aged Out No longer eligible based on patient's age to complete this topic Procedures Procedure Name Priority Date/Time Associated Diagnosis Comments HEMOGLOBIN A1C Routine 01/27/2025 7:00 AM EST Other filler leaf cutter long (current) drug therapy HEMOGLOBIN AND HEMATOCRIT Routine 01/27/2025 7:00 AM EST Other filler leaf cutter long (current) drug therapy LIPID PANEL WITH REFLEX TO DIRECT LDL Routine 01/27/2025 7:00 AM EST Other care home (current) drug therapy COMPREHENSIVE METABOLIC PANEL Routine 01/27/2025 7:00 AM EST Other filler leaf cutter long (current) drug therapy from Last 3 Months Results * (ABNORMAL) Lipid panel with reflex to direct LDL (01/27/2025 7:00 AM EST) Cholesterol 185 0 - 200 mg/dL LAB CHEMISTRY METHOD 01/27/2025 3:52 PM [facility] Triglycerides 126 0 - 150 mg/dL LAB CHEMISTRY METHOD 01/27/2025 3:52 PM [facility] HDL 38(L) >=40 mg/dL LAB CHEMISTRY METHOD 01/27/2025 3:52 PM [facility] LDL Calculated 122(H) 0 - 100 mg/dL LAB CHEMISTRY METHOD 01/27/2025 3:52 PM [facility] Comment:Estimated LDL Calcul ated using equation: Total cholesterol - HDL cholesterol - (Triglycerides/5) VLDL Cholesterol Octaviano 25.2 mg/dL LAB CHEMISTRY METHOD 01/27/2025 3:52 PM [facility] Non HDL Chol. (LDL+VLDL) 147(H) <145 mg/dL LAB CHEMISTRY METHOD 01/27/2025 3:52 PM [facility] Chol/HDL Ratio 4.9(H) 0.0 - 4.4 LAB CHEMISTRY METHOD 01/27/2025 3:52 PM [facility] Blood Venous blood specimen / Unknown Venipuncture / Unknown 01/27/2025 7:00 AM EST 01/27/2025 10:17 AM EST us Kelli Singh STOVE FITTER LAB BLOOD ORDERABLES Final Resu lt [facility] [address] [place] [address], * (ABNORMAL) Hemoglobin and hematocrit (01/27/2025 7:00 AM EST) Hemoglobin 14.0 13.5 - 17.5 g/dL LAB HEMETOLOGY METHOD 01/27/2025 10:[address] [facility] Hematocrit 40.2(L) 42.0 - 54.0 % LAB HEMETOLOGY METHOD 01/27/2025 10:[address] [facility] Blood Venous blood specimen / Unknown Venipuncture / Unknown 01/27/2025 7:00 AM EST 01/27/2025 10:17 AM EST Kelli Singh NP LAB BLOOD ORDERABLES Final Resu lt Performing Organization Address [facility]/ZIP Co de Phone Number [facility] [address] [place] [address], [place] [phone] * Hemoglobin A1c (01/27/2025 7:00 AM EST) Pathologist [facility] Hemoglobin A1C 5.4 <6.5 % LAB CHEMISTRY METHOD 01/27/2025 12:[address] [facility] Mean Bld Glu Estim. 108 mg/dL LAB CHEMISTRY METHOD 01/27/2025 12:12 PM [facility] Blood Venous blood specimen / Unknown Venipuncture / Unknown 01/27/2025 7:00 AM EST 01/27/2025 10:17 AM EST Kelli Singh NP LAB BLOOD ORDERABLES Final Resu lt Performing Organization Address [facility]/ZIP Co de Phone Number [facility] [address] [place] [address], [place] [phone] * (ABNORMAL) Comprehensive metabolic panel (01/27/2025 7:00 AM EST) Sodium 139 133 - 145 mmol/L LAB CHEMISTRY METHOD 01/27/2025 3:[address] [facility] Potassium 4.2 3.5 - 5.5 mmol/L LAB CHEMISTRY METHOD 01/27/2025 3:52 PM [facility] Chloride 106 96 - 110 mmol/L LAB CHEMISTRY METHOD 01/27/2025 3:52 PM [facility] CO2 27 21 - 32 mmol/L LAB CHEMISTRY METHOD 01/27/2025 3:52 PM [facility] Anion Gap 6 3 - 11 LAB CHEMISTRY METHOD 01/27/2025 3:52 PM [facility] Glucose 104(H) 70 - 100 mg/dL LAB CHEMISTRY METHOD 01/27/2025 3:52 PM [facility] BUN 18 5 - 25 mg/dL LAB CHEMISTRY METHOD 01/27/2025 3:52 PM [facility] Creatinine 1.02 0.70 - 1.30 mg/dL LAB CHEMISTRY METHOD 01/27/2025 3:52 PM [facility] eGFR 98 >=60 mL/min/1. 73m2 LAB CHEMISTRY METHOD 01/27/2025 3:52 PM [facility] Comment:Calculation based on the Chronic Kidney Disease Epidemiology Collaboration (CKD-EPI) equation refit without adjustment for race. BUN/Creatinine Ratio 17.6 LAB CHEMISTRY METHOD 01/27/2025 3:52 PM [facility] Calcium 9.2 8.5 - 10.5 mg/dL LAB CHEMISTRY METHOD 01/27/2025 3:52 PM [facility] AST (SGOT) 15 10 - 42 unit/L LAB CHEMISTRY METHOD 01/27/2025 3:52 PM [facility] ALT (SGPT) 26 10 - 60 unit/L LAB CHEMISTRY METHOD 01/27/2025 3:52 PM [facility] Alkaline Phosphatase 61 42 - 121 unit/L LAB CHEMISTRY METHOD 01/27/2025 3:52 PM [facility] Total Protein 6.8 6.0 - 8.0 g/dL LAB CHEMISTRY METHOD 01/27/2025 3:52 PM [facility] Albumin 3.9 3.2 - 5.0 g/dL LAB CHEMISTRY METHOD 01/27/2025 3:52 PM [facility] Total Bilirubin 0.2 0.0 - 1.4 mg/dL LAB CHEMISTRY METHOD 01/27/2025 3:[address] [facility] Blood Venous blood specimen / Unknown Venipuncture / Unknown 01/27/2025 7:00 AM EST 01/27/2025 10:17 AM EST us Kelli Singh STOVE FITTER LAB BLOOD ORDERABLES Final Resu lt [facility] [address] [place] [address], from Last 3 Months Insurance [facility] Care Teams Matzo Forming Machine Operator Relationship Specialty Start Date End Date Rashaad Jorge PA [address] [place] [address] PCP - General 07/29/24
--- OUTSIDE RECORDS SUMMARY | 2025-02-04 18:36 | XMS_ITS | Encounter Summary ---
Author Organization [employer] Address [address] [place] [address] Care Team Providers Care Rock Dust Sprayer Name Role Phone Rashaad Jorge Primary Care Provider + Encounter Details Date Type Department Care Team (Late st Contact Info) Description 01/27/2025 Lab Requisition [facility] - Main Lab [address] [facility] [place] [address] Kelli Singh NP 71 [facility] [address] [place] [address] Other alf (current) drug therapy Social History Tobacco Use Types Packs/Day Years Used Date Smoking Tobacco: Never Assessed Sex and Gender Information Value Date Recorded Sex Assigned at Not on file Legal Sex Male 7:47 PM EDT Gender Identity Not on file Sexual Orientation Not on file documented as of this encounter Plan of Treatment Not on file documented as of this encounter Procedures Procedure Name Priority Date/Time Associated Diagnosis Comments LIPID PANEL WITH REFLEX TO DIRECT LDL Routine 01/27/2025 7:00 AM EST Other alf (current) drug therapy HEMOGLOBIN AND HEMATOCRIT Routine 01/27/2025 7:00 AM EST Other terminal superintendent (current) drug therapy HEMOGLOBIN A1C Routine 01/27/2025 7:00 AM EST Other alf (current) drug therapy COMPREHENSIVE METABOLIC PANEL Routine 01/27/2025 7:00 AM EST Other terminal superintendent (current) drug therapy documented in this encounter Results * Hemoglobin A1c (01/27/2025 7:00 AM EST) Hemoglobin A1C 5.4 <6.5 % LAB CHEMISTRY METHOD 01/27/2025 12:12 PM EST [facility] Mean Bld Glu Estim. 108 mg/dL LAB CHEMISTRY METHOD 01/27/2025 12:12 PM EST [facility] Blood Venous blood specimen / Unknown Venipuncture / Unknown 01/27/2025 7:00 AM EST 01/27/2025 10:17 AM EST Kelli Singh NP LAB BLOOD ORDERABLES Final Resu lt [facility] [address] [place] [address], [place] [phone] * (ABNORMAL) Hemoglobin and hematocrit (01/27/2025 7:00 AM EST) [facility] Hemoglobin 14.0 13.5 - 17.5 g/dL LAB HEMETOLOGY METHOD 01/27/2025 10:54 AM EST [facility] Hematocrit 40.2(L) 42.0 - 54.0 % LAB HEMETOLOGY METHOD 01/27/2025 10:54 AM EST [facility] Blood Venous blood specimen / Unknown Venipuncture / Unknown 01/27/2025 7:00 AM EST 01/27/2025 10:17 AM EST Kelli Singh NP LAB BLOOD ORDERABLES Final Resu lt [facility] [address] [place] [address], [place] [phone] * (ABNORMAL) Lipid panel with reflex to direct LDL (01/27/2025 7:00 AM EST) [facility] Cholesterol 185 0 - 200 mg/dL LAB CHEMISTRY METHOD 01/27/2025 3:52 PM EST [facility] Triglycerides 126 0 - 150 mg/dL LAB CHEMISTRY METHOD 01/27/2025 3:52 PM EST [facility] HDL 38(L) >=40 mg/dL LAB CHEMISTRY METHOD 01/27/2025 3:52 PM [facility] LDL Calculated 122(H) 0 - 100 mg/dL LAB CHEMISTRY METHOD 01/27/2025 3:52 PM [facility] Comment:Estimated LDL Calcul ated using equation: Total cholesterol - HDL cholesterol - (Triglycerides/5) VLDL Cholesterol Octaviano 25.2 mg/dL LAB CHEMISTRY METHOD 01/27/2025 3:52 PM [facility] Non HDL Chol. (LDL+VLDL) 147(H) <145 mg/dL LAB CHEMISTRY METHOD 01/27/2025 3:52 PM [facility] Chol/HDL Ratio 4.9(H) 0.0 - 4.4 LAB CHEMISTRY METHOD 01/27/2025 3:52 PM [facility] Blood Venous blood specimen / Unknown Venipuncture / Unknown 01/27/2025 7:00 AM EST 01/27/2025 10:17 AM EST us Kelli Singh NP LAB BLOOD ORDERABLES Final Resu lt [facility] [address] [place] [address], * (ABNORMAL) Comprehensive metabolic panel (01/27/2025 7:00 AM EST) Sodium 139 133 - 145 mmol/L LAB CHEMISTRY METHOD 01/27/2025 3:52 PM [facility] Potassium 4.2 3.5 - 5.5 mmol/L LAB CHEMISTRY METHOD 01/27/2025 3:52 PM [facility] Chloride 106 96 - 110 mmol/L LAB CHEMISTRY METHOD 01/27/2025 3:52 PM [facility] CO2 27 21 - 32 mmol/L LAB CHEMISTRY METHOD 01/27/2025 3:52 PM [facility] Anion Gap 6 3 - 11 LAB CHEMISTRY METHOD 01/27/2025 3:52 PM [facility] Glucose 104(H) 70 - 100 mg/dL LAB CHEMISTRY METHOD 01/27/2025 3:52 PM [facility] BUN 18 5 - 25 mg/dL LAB CHEMISTRY METHOD 01/27/2025 3:52 PM [facility] Creatinine 1.02 0.70 - 1.30 mg/dL LAB CHEMISTRY METHOD 01/27/2025 3:52 PM [facility] eGFR 98 >=60 mL/min/1. 73m2 LAB CHEMISTRY METHOD 01/27/2025 3:52 PM [facility] Comment:Calculation based on the Chronic Kidney Disease Epidemiology Collaboration (CKD-EPI) equation refit without adjustment for race. BUN/Creatinine Ratio 17.6 LAB CHEMISTRY METHOD 01/27/2025 3:52 PM [facility] Calcium 9.2 8.5 - 10.5 mg/dL LAB CHEMISTRY METHOD 01/27/2025 3:52 PM [facility] AST (SGOT) 15 10 - 42 unit/L LAB CHEMISTRY METHOD 01/27/2025 3:52 PM [facility] ALT (SGPT) 26 10 - 60 unit/L LAB CHEMISTRY METHOD 01/27/2025 3:52 PM [facility] Alkaline Phosphatase 61 42 - 121 unit/L LAB CHEMISTRY METHOD 01/27/2025 3:52 PM [facility] Total Protein 6.8 6.0 - 8.0 g/dL LAB CHEMISTRY METHOD 01/27/2025 3:52 PM [facility] Albumin 3.9 3.2 - 5.0 g/dL LAB CHEMISTRY METHOD 01/27/2025 3:52 PM [facility] Total Bilirubin 0.2 0.0 - 1.4 mg/dL LAB CHEMISTRY METHOD 01/27/2025 3:52 PM EST [facility] Blood Venous blood specimen / Unknown Venipuncture / Unknown 01/27/2025 7:00 AM EST 01/27/2025 10:17 AM EST us Kelli Singh [employer] LAB BLOOD ORDERABLES Final Resu lt [facility] [address] [place] [address], documented in this encounter Visit Diagnoses Diagnosis Other alf (current) drug therapy documented in this encounter Care Teams Rock Dust Sprayer Relationship Specialty Start Date End Date Rashaad Jorge PA [address] [place] [address] PCP - General 07/29/24 documented as of this encounter
--- OUTSIDE RECORDS SUMMARY | 2025-02-04 18:36 | XMS_ITS | Encounter Summary ---
Author Organization [facility] Address [address] [place] [address] Care Team Providers Care Order Desk Caller Name Role Phone Rashaad Jorge Primary Care Provider + Encounter Details Date Type Department Care Team (Late st Contact Info) Description 01/27/2025 Lab Requisition [facility] - Main Lab [address] [facility] [address] Kelli Singh NP 71 [facility] [address] [place] [phone] Social History Tobacco Use Types Packs/Day Years Used Date Smoking Tobacco: Never Assessed Sex and Gender Information Value Date Recorded Sex Assigned at Not on file Legal Sex Male 7:47 PM EDT Gender Identity Not on file Sexual Orientation Not on file documented as of this encounter Plan of Treatment Not on file documented as of this encounter Visit Diagnoses Not on filedocumented in this encounter Care Teams Order Desk Caller Relationship Specialty Start Date End Date Rashaad Jorge PA [address] [place] [address] PCP - General 07/29/24 documented as of this encounter
--- OUTSIDE RECORDS SUMMARY | 2025-02-04 18:36 | XMS_ITS | Clinical Summary ---
Author Organization [employer] Address [address] [place] [id number] Care Team Providers Care Renal Dialysis Rn Name Role Phone Rashaad Jorge Primary Care Provider + Allergies Active Allergy Reactions Criticality Noted Date Comments Divalproex Other (See Comments) 12/16/2024 Makes him feel strange. Medications * This document contains information received from the source organization and may not represent a complete record from that organization. haloperidoL (HALDOL) 5 MG tablet Take 1 tablet (5 mg total) by mouth at bedtime. Active buprenorphine-n aloxone (SUBOXONE) 8-2 mg per [address] tablet [address] 1 tablet under the tongue in the morning. Active gabapentin (NEURONTIN) 300 MG capsule Take 1 capsule (300 mg total) by mouth in the morning and 1 capsule (300 mg total) in the evening and 1 capsule (300 mg total) before bedtime. Active haloperidoL (HALDOL) 5 MG tablet Take 1 tablet (5 mg total) by mouth at bedtime. Active melatonin 5 mg cap Take 1 capsule (5 mg total) by mouth at bedtime. Active prazosin (MINIPRESS) 1 MG capsule Take 1 capsule (1 mg total) by mouth at bedtime. Active QUEtiapine (SEROquel) 400 MG tablet Take 1 tablet (400 mg total) by mouth at bedtime. Active sertraline (ZOLOFT) 100 MG tablet Take 1 tablet (100 mg total) by mouth in the morning. Active hydrOXYzine HCL (ATARAX) 50 MG tablet Take 1 tablet (50 mg total) by mouth every 4 hours as needed for itching. Active traZODone (DESYREL) 50 MG tablet Take 1 tablet (50 mg total) by mouth at bedtime. Active melatonin 5 mg Tab Take 1 tablet (5 mg total) by mouth at bedtime as needed. 01/16/20 25 buprenorphine-n aloxone (SUBOXONE) 8-[address] 1 Film under the tongue in the morning and 1 Film in the evening. 01/16/20 25 Active Problems Problem Noted Date Diagnosed Date Severe opioid use disorder 12/16/2024 Encounters * This document contains information received from the source organization and may not represent a complete record from that organization. Date Type Department Care Team Description 12/17/2024 2:01 PM EDT - 12/17/2024 7:45 PM EDT Emergency [facility] [address] [place] [address] Lisa Meredith MD Korik, Deborah L, MD Passive suicidal ideations (Primary Dx); Anxiety; Bipolar affective disorder, remission status unspecified [F31.9] [facility]charge [facility]position: [facility] from Last 3 Months Social History Tobacco Use Types Packs/Day Years Used Date Smoking Tobacco: Never Assessed Sex and Gender Information Value Date Recorded Sex Assigned at Male 12/26/2024 3:56 PM EDT Legal Sex Male 11:29 AM EDT Gender Identity Male 12/16/2024 1:51 PM EDT Sexual Orientation Not on file Last Filed Vital Signs Vital Sign Reading Time Taken Comments Blood Pressure 117/76 12/17/2024 2:08 PM EDT Pulse 101 12/17/2024 2:08 PM EDT Temperature 36.8 C (98.3 F) 12/17/2024 2:08 PM EDT Respiratory Rate 20 12/17/2024 2:08 PM EDT Oxygen Saturation 98% 12/17/2024 2:08 PM EDT Inhaled Oxygen Concentration - - Weight 65.8 kg (145 lb) 12/17/2024 2:08 PM EDT Height 165.1 cm (5' 5 ) 12/17/2024 2:08 PM EDT Body Mass Index 24.13 12/17/2024 2:08 PM EDT Plan of Treatment Health Maintenance Due Date Last Done Comments Depression Screening 2000 Hepatitis C Screening 2006 DTaP,Tdap,and Td Vaccines (1 - Tdap) 08/30/2007 COVID-19 Vaccine (2024-2 6 season) 2024 Influenza Vaccine (#1) 2024 Blood Pressure 12/17/2028 12/17/2024 Meningococcal B Vaccines Aged Out No longer eligible based on patient's age to complete this topic Meningococcal Vaccines Aged Out No lo nger eligible based on patient's age to complete this topic Pneumococcal Vaccine Aged Out No long er eligible based on patient's age to complete this topic Procedures Procedure Name Priority Date/Time Associated Diagnosis Comments CORONAVIRUS SARS-COV-2 AND INFLUENZA A/B STAT 12/17/2024 2:29 PM EDT DRUG SCREEN, URINE STAT 12/17/2024 2: 29 PM EDT from Last 3 Months Results * Covid/Flu (12/17/2024 2:29 PM EDT) Coronavirus SARS-CoV-2 Not Detected Not Detected XIAO LYNDA 12/17/2024 2:56 PM EDT [facility] Influenza A Not Detected Not Detected XIAO LYNDA 12/17/2024 2:56 PM EDT [facility] Comment: A negative test does not rule out infection with an influenza virus. Influenza B Not Detected Not Detected XIAO LYNDA 12/17/2024 2:56 PM EDT [facility] Comment:A negative test does not rule out infection with an influenza virus. xNasopharyngeal NASOPHARYNGEAL SWAB / Unknown Collection / Unknown 12/17/2024 2:29 PM EDT 12/17/2024 2:34 PM EDT Narrative [facility] - 12/17/2024 2:56 PM EDT Test performed using the [employer] LYNDA CoV-2 & Influenza RT-PCR assay, which has received emergency use authorization (EUA) by the U.S. Food and Drug Administration. Test performance has been verified by the [facility]. A Negative test result means that SARS- CoV-2 RNA was not present in the specimen above the limit of detection. A negative result does not rule out the possibility of COVID-19 and should not be used as the sole basis for treatment or patient management decisions. If COVID-19 is still suspected, based on exposure history together with other clinical findings, re-testing should be considered in consultation with public health authorities. Laboratory test results should always be considered in the context of clinical observations and epidemiological data in making a final diagnosis and patient management decisions. Fact sheet for providers: https://www.fda.gov/media/747602/download Fact sheet for patients: https://www.fda.gov/media/875827/download Method: Real time polymerase chain reaction [employer] PRYOR BODY FLUIDS AND STOOLS ORDERAB LES Final Result [facility] [address] [place] [address] * (ABNORMAL) Drug Screen, Urine (12/17/2024 2:29 PM EDT) 6-Aceytlmorphine Screen, Urine Negative Negative 12/17/2024 3:11 PM EDT [facility] Comment:Add on order [id number] Opiates and Oxycodone, Urine, Confirmation, if confirmation desired. Amphetamines Screen, Urine Negative Negative 12/17/2024 3:11 PM EDT [facility] Comment: Screen for Amphetamine, Metamphetamine or other Amphetamine-like compounds. Add-on order [id number] Amphetamine, Urine, Confirmation if confirmation desired. Barbiturates Screen, Urine Negative Negative 12/17/2024 3:11 PM EDT [facility] Comment:Add-on order [id number] Barbiturate, Urine, Confirmation if confirmation desired. Benzodiazepine Screen, Urine Negative Negative 12/17/2024 3:11 PM EDT [facility] Comment: Add-on order [id number] Benzodiazepine, Urine, Confirmation if confirmation desired. Buprenorphine Screen, Urine Positive(A) Negative 12/17/2024 3:11 PM EDT [facility] Comment:Add-on order [id number] Buprenorphine, Urine, Confirmation if confirmation desired. Cannabinoids Screen, Urine Negative Negative 12/17/2024 3:11 PM EDT [facility] Comment:Add-on order [id number] Cannabinoids, Urine, if confirmation desired. Cocaine Metabolite Screen, Urine Negative Negative 12/17/2024 3:11 PM EDT [facility] Comment:Add-on order [id number] Cocaine, Urine, Confirmation if confirmation desired. Ethanol Screen, Urine Negative Negative 12/17/2024 3:11 PM EDT [facility] Fentanyl Screen, Urine Negative Negative 12/17/2024 3:11 PM EDT [facility] Comment:Add-on order [id number] Fentanyl Confirmation, Urine, if confirmation desired. Methadone Screen, Urine Negative Negative 12/17/2024 3:11 PM EDT [facility] Comment:Add order [id number] Me thadone, Urine, Confirmation if confirmation desired. Opiates Screen, Urine Negative Negative 12/17/2024 3:11 PM EDT [facility] Comment: Screen for Morphine, Codeine, Hyrdocodone, Hydromorphone, or other Morphine- related opiates. Add on order [id number] Opiates and Oxycodone, Urine, Confirmation if confirmation desired. Oxycodone Screen, Urine Negative Negative 12/17/2024 3:11 PM EDT [facility] Comment:Add-on order [id number] Opiates and Oxycodone, Urine, Confirmation if confirmation desired. Tramadol Screen, Urine Negative Negative 12/17/2024 3:11 PM EDT [facility] Comment:Add-on order [id number] Tramadol Confirmation, Urine, if confirmation desired. Creatinine, [facility] Urine 112.0 >=15.0 mg/dL 12/17/2024 3:11 PM EDT [facility] Urine URINE SPECIMEN / Unknown Collection / Unknown 12/17/2024 2:29 PM EDT 12/17/2024 2:34 PM EDT [facility] - 12/17/2024 3:11 PM EDT These tests are for screening purposes only and should only be used for medical purposes. The cutoff concentrations for determining a positive result are as follows: 6-Acetylmorphine 10 ng/mL 6-acetylmorphine Amphetamines 1000 ng/mL d-methamphetamine Barbiturates 200 ng/mL secobarbital Benzodiazepines 200 ng/mL nordiazepam Buprenorphine 5 ng/mL norbuprenorphine Cannabinoids 50 ng/mL COO[facility]-THC Cocaine 300 ng/mL benzoylecgonine Ethanol 20 mg/dL ethanol Fentanyl 5 ng/mL norfentanyl Methadone 300 ng/mL methadone Opiates 300 ng/mL morphine Oxycodone 100 ng/mL oxycodone Tramadol 200 ng/mL tramadol False negative and false positive results may occur due to cross-reactivity, patient medications or sample adulteration. If the validity of these results is uncertain, confirmatory testing can be done upon specific request. [employer] PRYOR URINE ORDERABLES Final Result [facility] [address] [place] [address] from Last [address] [facility] Care Teams Renal Dialysis Rn Relationship Specialty Start Date End Date Rashaad Jorge PA [address] [place] [address] PCP - General Physician Broadcast Chief Engineer 12/17/24
== END 2025-02-04 15:46 | disposition home or self-care (01) ==
PROVIDERS: Emergency Provider Emergency Medicine
DX: F39 Unspecified mood [affective] disorder (principal); Z79.899 Other long term (current) drug therapy
CPT/HCPCS: 36415; 80048; 80076; 85025; 99283; 99284